=== PATIENT | male | born 2000 | race Two or more races ===

== ENCOUNTER 2021-10-01 08:17 | Outpatient (REF) | payer MEDICAID, SELFPAY ==
--- NOTE | 2021-10-01 11:12 | MHC.AU.AEV ---
Adult Audiological Evaluation Date of Visit: 10/01/21 Reason for Appointment: Audiological evaluation due to concern for decreased hearing. Yong reports a decrease in his hearing over the past month. He also notes intermittent tinnitus, that he typically only notices when in a quiet room or at night. Yong was previously seen in our clinic and diagnosed with Central Auditory Processing Disorder in 2015. Yong was also seen at our clinic in 2009, at which time he presented with conductive hearing loss in the left ear and bilateral middle-ear dysfunction. He has a history of PE tubes as well. Ear lavage was recently performed at his PCP's office. PCP's note states that a fair amount of wax was removed, but Yong became dizzy and stopped the procedure. He notes that he has since been using earwax removal drops. Does patient feel they have a hearing loss?: Yes If Yes, Which Ear?: Both Ears Has hearing been tested previously?: Yes Previous Hearing Test Results: [facility] [place], 07/02/2010 - Normal hearing, OAEs, and middle-ear function in the right ear. Mild to moderate conductive hearing loss, middle-ear dysfunction, and absent OAEs in the left ear. [facility], 09/15/2010 - Normal hearing, normal OAEs, negative middle-ear pressure in the right ear. Mild conductive hearing loss rising to normal hearing, reduced OAEs, and negative middle-ear pressure in the left ear. [facility] [place], 01/12/2011 - Normal hearing, normal OAEs, and normal middle-ear function bilaterally. [facility], 02/18/2016 - Pre-CAP eval - Normal hearing, normal middle-ear function bilaterally. Normal OAEs in left ear, reduced OAEs right ear. [facility] [place], 03/24/2016 - CAP eval - Scored below normal limits on two of the five tests, indicating an auditory processing disorder. Hearing Handicap Inventory HHIE SCORE: 4 Based on HHIE score, patient has: No perceived hearing handicap Ear History: Family History of Hearing Loss?: Yes: Paternal grandmother Ear Infections in Childhood: Both Ears History of Ear Wax Buildup: Both Ears Previous Ear Surgery: Both ears, PE tubes in 2005 Bothersome Tinnitus/Ringing/Noises in Ears: Left Ear Blocked/Full Sensation in Ear(s): Both Ears Medical History: Medical History: Headache Medical History: Per PCP report: ADHD, Tic disorder, other specific developmental learning difficulties , mixed receptive-expressive language disorder Medication List: Sertraline 100 mg twice daily Otoscopy: Right Ear: Unremarkable Left Ear: Unremarkable Tympanometry: Tympanometry performed due to: History of middle ear dysfunction Right Ear: Normal Middle Ear System (Type A) Left Ear: Normal Middle Ear System (Type A) Otoacoustic Emissions Frequency Range Used: 1.6-8 kHz Right Ear Results: Present Emissions Analysis: Present emissions suggest normal cochlear function. Rules out peripheral hearing loss greater than a mild degree. Left Ear Results: Present Emissions Analysis: Present emissions suggest normal cochlear function. Rules out peripheral hearing loss greater than a mild degree. Hearing Evaluation: Transducer(s) Used: Insert Earphones, Bone Conduction Method: Conventional Audiometry Stimuli Used: Pure Tones Right Ear: Description of Hearing: Normal hearing from 250-8000 Hz. Left Ear: Description of Hearing: Normal hearing from 250-8000 Hz. Slight low-frequency conductive component, though hearing is still within the normal range. Speech Recognition Threshold (SRT): Method Used: Monitored Live Voice Stimuli Used: Spondee Words Right Ear: 5 dBHL Left Ear: 10 dBHL Word Discrimination: Method: Recorded Lists Word Lists Used: NU-6 Right Ear: 100% at 45 dBHL Left Ear: 100% at 50 dBHL QuickSIN: 5 dB SNR loss in both the right ear and the left ear when presented monaurally at 50 dBHL, indicating a mild [id number] understanding deficit bilaterally. Interpretation of Results: Today's testing indicates normal hearing bilaterally. Advised that he may be experiencing fluctuating hearing levels due to his history of ear wax build-up (though his canals are clear today). Also, given his significant history of middle-ear dysfunction, it is possible that he could be experiencing intermittent middle-ear dysfunction at this time as well. Recommendations: No further audiological action is indicated at this time. Encouraged to return for an audiological re-evaluation if changes to his hearing are noted. Diagnosis: Primary Diagnosis: H93.293 Abnormal Auditory Perception Secondary Diagnosis: H93.25 Central Auditory Processing Disorder Services Performed: Comprehensive Audiological Evaluation (CPT 10801) Diagnostic Otoacoustic Emissions (CPT 64422, 26+TC) Tympanometry (CPT 14712) Unlisted Otorhinolaryngological Service or Procedure (CPT 64915) Signature: Provider: José Manuel Campbell, [facility]
== END 2021-10-01 08:18 | disposition home or self-care (01) ==
LOC: HO.SH 08:17
PROVIDERS: Visit Provider Emergency Medicine
DX: H93.293 Other abnormal auditory perceptions, bilateral (principal); H93.25 Central auditory processing disorder
CPT/HCPCS: 92557; 92567; 92588; 92700

== ENCOUNTER 2022-01-19 10:39 | Outpatient (REF) | payer MEDICAID, SELFPAY ==
--- NOTE | ~2022-01-19 | XR_ITS ---
EXAMINATION: XR ABDOMEN KUB CLINICAL INDICATION: Diarrhea, unspecified COMPARISON: None TECHNIQUE: AP x3 views of the abdomen. FINDINGS: There is scattered gas in the bowel of normal caliber. There is no gaseous dilatation of bowel or abnormal collections of gas. Lung bases are clear. There is no visible urinary tract calculi. Bony structures are unremarkable. XR/XR KUB IMPRESSION: Unremarkable examination.
== END 2022-01-19 10:40 | disposition home or self-care (01) ==
LOC: HO.XRAY 10:39
PROVIDERS: PCP Nurse Practitioner Family; Visit Provider Nurse Practitioner Family
DX: R19.7 Diarrhea, unspecified (principal)
CPT/HCPCS: 74018

== ENCOUNTER 2022-01-21 08:58 | Outpatient (REF) | payer MEDICAID, SELFPAY ==
[2022-01-21 09:43] LABS: Hematocrit 48.9 % (42.0-52.0); Hemoglobin 15.7 g/dl (14.0-18.0); Mean Corpuscular HGB Conc 32.1 g/dl (31.0-36.0); Mean Corpuscular Hemoglobin 27.2 pg (27.0-33.0); Mean Corpuscular Volume 84.6 fL (80.0-98.0); Mean Platelet Volume 9.4 fL (9.4-12.4); Platelet Count 232 X10*3/uL (160-400); Red Blood Count 5.78 X10*6/uL (4.60-5.80); White Blood Count 4.6 X10*3/uL (4.8-10.8)
[2022-01-21 10:22] LABS: Erythrocyte Sedimentation Rate 1 MM/HR (0-15)
[2022-01-21 10:29] LABS: Ferritin 69 ng/mL (20-250); Vitamin D 25-OH Total 19.1 ng/mL (>30)
[2022-01-21 10:33] LABS: Alanine Aminotransferase 12 U/L (0-40); Alkaline Phosphatase 106 U/L (39-117); Amylase 40 U/L (28-100); Aspartate Amino Transferase 14 U/L (5-37); Bilirubin Direct 0.5 mg/dL (0.0-0.5); Bilirubin Total 1.2 mg/dL (0.0-1.0); C Reactive Protein 0.03 mg/dL (< or = 0.50); Iron 117 mcg/dL (45-160); Lipase 12 U/L (8-78); Total Protein 7.9 g/dL (6.5-8.0)
[2022-01-21 10:53] LABS: Folate 14.4 ng/mL (> or = 4.0); Vitamin B12 551 pg/mL (200-900)
[2022-01-21 11:53] LABS: Percent Iron Saturation 35 % (15-50); Total Iron Binding Capacity 333 mcg/dL (228-428); Unsaturated Iron Binding 216 ug/dL
[2022-01-22 18:22] LABS: Transglutaminase Ab IgG <1.0 U/mL; Transglutaminase IgA <1.0 U/mL
[2022-01-23 20:01] LABS: Immunoglobulin A 135 mg/dL (47-310)
[2022-01-24 15:08] LABS: Gliadin Deamidated IgA Ab <1.0 U/mL; Gliadin Deamidated IgG Ab <1.0 U/mL
[2022-01-27 15:31] LABS: Endomysial IgA Antibody Negative (Negative)
== END 2022-01-21 08:59 | disposition home or self-care (01) ==
LOC: HO.LAB 08:58
PROVIDERS: PCP Nurse Practitioner Family; Visit Provider Nurse Practitioner Family
DX: R19.7 Diarrhea, unspecified (principal)
CPT/HCPCS: 36415; 80076; 82150; 82306; 82607; 82728; 82746; 82784; 83540; 83690; 85027; 85652; 86140; 86231; 86258; 86364

== ENCOUNTER 2022-05-20 08:50 | Outpatient (REF) | payer MEDICAID, SELFPAY ==
--- NOTE | ~2022-05-20 | US_ITS ---
EXAMINATION: US ABDOMEN COMPLETE CLINICAL INFORMATION: Chronic diarrhea. Elevated indirect bilirubin. COMPARISON: X-ray KUB 01/19/2022. TECHNIQUE: Real-time imaging of the abdominal viscera. FINDINGS: PANCREAS: Normal. ABDOMINAL AORTA: The proximal, mid, and distal segments are normal in caliber. INFERIOR VENA CAVA: Visualized portions are normal. LIVER: Normal. The liver is normal in size. The liver contour is normal. Parenchymal echogenicity is normal. No focal hepatic lesion. There is no intrahepatic biliary duct dilatation seen. GALLBLADDER: Normal. The gallbladder is physiologically distended without evidence of stones, sludge, polyps, wall thickening or pericholecystic fluid. COMMON BILE DUCT: Normal in caliber measuring 0.4 cm in diameter. RIGHT KIDNEY: Normal. No hydronephrosis. No renal calculi or focal parenchymal lesions. The kidney measures 10.3 cm in maximum dimension. LEFT KIDNEY: Normal. No hydronephrosis. No renal calculi or focal parenchymal lesions. The kidney measures 11.8 cm in maximum dimension. SPLEEN: Normal. The spleen measures 11.9 cm in maximum dimension. FREE FLUID: None. US/US abdomen complete IMPRESSION: Unremarkable examination.
== END 2022-05-20 08:51 | disposition home or self-care (01) ==
LOC: HO.HMGCX 08:50
PROVIDERS: Visit Provider Nurse Practitioner Family
DX: R19.7 Diarrhea, unspecified (principal)
CPT/HCPCS: 76700

== ENCOUNTER 2023-03-20 21:31 | Emergency (ER) | payer MEDICAID, SELFPAY ==
--- NOTE | 2023-03-20 | ECG_ITS ---
Test Reason : chest pain Blood Pressure : / mmHG Vent. Rate : 105 BPM Atrial Rate : 105 BPM P-R Int : 152 ms QRS Dur : 084 ms QT Int : 342 ms P-R-T Axes : 083 020 015 degrees QTc Int : 452 ms Sinus tachycardia Possible Left atrial enlargement Cannot rule out Anteroseptal infarct , age undetermined Abnormal ECG No previous ECGs available Referred By: Generic ED Physician Electronically Signed By:HEIDY ALEXANDER
--- NOTE | ~2023-03-20 | XR_ITS ---
EXAMINATION: XR CHEST CLINICAL INFORMATION: Chest pain, shortness of breath COMPARISON: 09/07/2016 TECHNIQUE: Frontal view of the chest was obtained. FINDINGS: The lungs are clear with no focal consolidation. No evidence of pneumothorax, pulmonary edema, or pleural effusions. The cardiomediastinal silhouette is unremarkable. No acute osseous findings. XR/XR chest 1V IMPRESSION: No acute cardiopulmonary findings.
[2023-03-20 21:35] VITALS: BP 139/83; PULSE 104; RESP 20; TEMP 36.6; O2SAT 100; BMI 30.1
[2023-03-20 21:55] LABS: MANUAL DIFF FLAG NO
[2023-03-20 21:56] LABS: Basophils Percent Auto 0.2 % (0-2); Eosinophils Absolute Auto 0.1 X10*3/uL (0.0-0.4); Eosinophils Percent Auto 0.8 % (0-4); Hemoglobin 15.7 g/dl (14.0-18.0); Imm Gran Abs Auto 0.02 X10*3/uL (0.00-0.03); Imm Gran Pct Auto 0.2 % (0.0-0.4); Lymphocytes Absolute Auto 3.1 X10*3/uL (1.2-4.9); Lymphocytes Percent Auto 36.6 % (20-40); Mean Corpuscular HGB Conc 34.9 g/dl (31.0-36.0); Mean Corpuscular Hemoglobin 27.3 pg (27.0-33.0); Mean Corpuscular Volume 78.1 fL (80.0-98.0); Mean Platelet Volume 9.2 fL (9.4-12.4); Monocytes Absolute Auto 0.6 X10*3/uL (0.1-1.2); Monocytes Percent Auto 6.7 % (2-11); Neutrophils Absolute Auto 4.7 x10*3/uL (2.0-8.3); Neutrophils Percent Auto 55.5 % (45-73); Platelet Count 312 X10*3/uL (160-400); Red Blood Count 5.76 X10*6/uL (4.60-5.80); Red Cell Distribution Width 13.1 % (11.0-16.0); White Blood Count 8.4 X10*3/uL (4.8-10.8)
[2023-03-20 22:10] LABS: Anion Gap 16 (12-20); Blood Urea Nitrogen 14 mg/dL (9-16); Calcium 10.6 mg/dL (8.4-10.2); Carbon Dioxide 19 mmol/L (22-29); Chloride 110 mmol/L (96-108); Creatinine Clr Calc Pharmacy 109.1; Estimated Glomerular Filt Rate > 60; Glucose Random 108 mg/dL (60-115); Potassium 3.7 mmol/L (3.3-5.1); Sodium 141 mmol/L (135-145)
[2023-03-20 22:26] VITALS: BP 128/59; PULSE 111; RESP 18; O2SAT 100
--- NOTE | 2023-03-20 22:28 | ED.CHESTPAIN ---
HPI - Chest Pain General Chief Complaint: Chest Pain Stated Complaint: Chest pain/sob Time Seen by Provider: 03/20/23 22:19 Source: patient Mode of arrival: ambulatory Limitations: no limitations History of Present Illness HPI narrative: Patient history of anxiety disorder on sertraline which is not taking for last 4 days comes here with multiple complaints having occasional cough with increased anxiety denies any SI or HI Related Data Previous Rx's Medication Instructions Recorded lorazepam 1 mg tablet (Ativan) 1 mg PO BID PRN anxiety #14 tabs 03/20/23 Allergies Allergy/AdvReac Type Severity Reaction Status Date / Time No Known Allergies Allergy Verified 03/20/23 22:53 [No Known Allergies*] Review of Systems Review of Systems: Yes all other systems are reviewed and are negative PMFSH Past Medical History Medical History Anxiety Asthma Social History Social History Alcohol intake: never Smoked in Last 30 Days: No Use of substances other than those prescribed or required for medical reasons: No Advance Directives: No Advance Directives Information Provided: Yes Physical Exam Vital Signs: Vital Signs: Last Vital Signs Temp 98 F 03/20/23 21:35 Pulse 111 H 03/20/23 22:26 Resp 18 03/20/23 22:26 BP 128/59 L 03/20/23 22:26 Pulse Ox 100 03/20/23 22:26 O2 Del Method Room Air, Nasal C annula with Capnog reid 03/20/23 22:26 BMI result Body Mass Index 30.1 Appearance: Alert. Oriented X3. No acute distress. Anxious Eyes: PERRLA, ENT: Pharynx normal. Oral Mucosa moist Neck: Normal inspection. Neck supple. CVS: Normal heart rate and rhythm. Pulses normal. Respiratory: No respiratory distress. Equal air entry bilateral, no wheezing/rales/rhonchi Abdomen: Soft and nontender. Bowel sounds are present, Skin: Skin warm and dry. Normal skin color. Normal skin turgor. Extremities: No lower extremity edema. No calf tenderness Neuro: Oriented X 3. Medications Administered Discontinued Medications Generic Name Dose Route Start Last Admin Trade Name Freq PRN Reason Stop Dose Admin Benzonatate 200 mg 03/20/23 22:39 03/20/23 22:52 Benzonatate 100 Mg Capsule PO 03/20/23 22:40 200 mg ONCE ONE Administration Lorazepam 1 mg 03/20/23 22:39 03/20/23 22:53 Lorazepam 1 Mg Tablet PO 03/20/23 22:40 1 mg ONCE ONE Administration Medical Decision Making Medical Decision Making [facility] Narrative: Patient's anxiety workup is negative felt better after Ativan advised to continue his sertraline and follow with PCP Lab Data [facility] Lab Attestation statement: I reviewed the patient's lab results. 03/20/23 21:50 03/20/23 21:50 Labs: Lab Results 03/20/23 03/20/23 03/20/23 Range/Units 21:50 21:50 21:50 WBC 8.4 (4.8-10.8) X10*3/uL RBC 5.76 (4.60-5.80) X10*6/uL Hgb 15.7 (14.0-18.0) g/dl Hct 45.0 (42.0-52.0) % MCV 78.1 L (80.0-98.0) fL MCH 27.3 (27.0-33.0) pg MCHC 34.9 (31.0-36.0) g/dl RDW 13.1 (11.0-16.0) % Plt Count 312 D (160-400) X10*3/uL MPV 9.2 L (9.4-12.4) fL Immature Gran % (Auto) 0.2 (0.0-0.4) % Neut % (Auto) 55.5 (45-73) % Lymph % (Auto) 36.6 (20-40) % [place] % (Auto) 6.7 (2-11) % Eos % (Auto) 0.8 (0-4) % Baso % (Auto) 0.2 (0-2) % Lymph # (Auto) 3.1 (1.2-4.9) X10*3/uL [place] # (Auto) 0.6 (0.1-1.2) X10*3/uL Eos # (Auto) 0.1 (0.0-0.4) X10*3/uL Baso # (Auto) 0.0 (0.0-0.2) X10*3/uL Abs Immat Gran (auto) 0.02 (0.00-0.03) X10*3/uL Absolute Neuts (auto) 4.7 (2.0-8.3) x10*3/uL Absolute Nucleated RBC 0.000 (0.0-0.012) X10*3/uL Nucleated RBC % (auto) 0.0 (0.0-0.2) /100WBC Sodium 141 (135-145) mmol/L Potassium 3.7 (3.3-5.1) mmol/L Chloride 110 H (96-108) mmol/L Carbon Dioxide 19 L (22-29) mmol/L Anion Gap 16 (12-20) BUN 14 (9-16) mg/dL Creatinine 1.24 (0.5-1.4) mg/dL Estim Creat Clear Calc 109.1 Estimated GFR > 60 Random Glucose 108 (60-115) mg/dL Calcium 10.6 H (8.4-10.2) mg/dL Troponin I High Sens < 2.7 (<3.5-35.0) ng/L Discharge Plan Discharge Clinical Impression: Anxiety disorder Patient Disposition: Home, Self-Care Instructions: Anxiety (ED) Additional Instructions: Continue your medications for anxiety Follow-up with your psychiatrist Ativan for severe anxiety Prescriptions: New lorazepam [Ativan] 1 mg tablet 1 mg PO BID PRN (Reason: anxiety) Qty: 14 0RF
[2023-03-20 22:30] LABS: Troponin-I High Sensitivity < 2.7 ng/L (<3.5-35.0)
--- NOTE | 2023-03-20 22:42 | PC.NURSE ---
pt c/o chest pain and congestion tremors father and brother at bedside aox4 restless is able to answer questions appropriately
[2023-03-20] MEDS: Benzonatate 100 MG CAPSULE 200 MG PO (22:52)
[2023-03-20] MEDS: LORazepam 1 MG TABLET PO (22:53)
== END 2023-03-20 23:37 | disposition home or self-care (01) ==
PROVIDERS: Emergency Provider Internal Medicine
DX: F41.9 Anxiety disorder, unspecified (principal); Z79.899 Other long term (current) drug therapy
CPT/HCPCS: 36415; 71045; 80048; 84484; 85025; 93005; 99283; 99285

== ENCOUNTER 2023-04-13 10:34 | Outpatient (REF) | payer MEDICAID, SELFPAY ==
--- NOTE | ~2023-04-13 | US_ITS ---
EXAMINATION: US THYROID CLINICAL INFORMATION: Enlarged thyroid. COMPARISON: None available. TECHNIQUE: Linear transducer grayscale and color Doppler examination with attention to the region of the thyroid. FINDINGS: SIZE: Measurements of the thyroid lobes and nodules are given in sagittal, anteroposterior and transverse dimensions respectively. Right Thyroid Lobe: 5.5 x 1.8 x 1.7 cm, volume 8.8 mL. Parenchyma: The gland echotexture is heterogeneous. Thyroid vascularity is normal. Left Thyroid Lobe: 5.5 x 1.4 x 1.7 cm, volume 6.9 mL. Parenchyma: The gland echotexture is heterogeneous. Thyroid vascularity is normal. Isthmus: 0.2 cm in maximum AP dimension. No focal thyroid nodule is seen. NODES: At right level II, 1.7 x 0.6 x 1.9 cm and 2.4 x 0.7 x 1.97 reniform lymph nodes are seen. Left level II, a 2.8 x 0.9 x 2.1 cm reniform lymph node is seen. US/US thyroid IMPRESSION: 1. There is heterogeneous thyroid echotexture, consistent with thyroiditis. 2. Thyroid dimensions are upper normal. 3. Mildly enlarged bilateral cervical lymph nodes are seen, likely reactive. These should be managed on a clinical basis. If of continued clinical concern, consider follow-up ultrasound imaging in 3-6 months to ensure stability/regression. ACR TI-RADS RECOMMENDATION REFERENCE: Ultrasound-guided fine-needle aspiration, followup ultrasound, no further follow up. * TR1 (0 point) and TR2 (2 points): No FNA or follow up. * TR3 (3 points): FNA if more than or equal to 2.5 cm in maximum dimension, followup ultrasound in 1, 3 and 5 years if 1.5 to 2.4 cm in maximum dimension. * TR4 (4-6 points): FNA if more than or equal to 1.5 cm in maximum dimension, followup ultrasound in 1, 2, 3 and 5 years if 1 to 1.4 cm in maximum dimension. * TR5 (more than or equal to 7 points): FNA if more than or equal to 1 cm in maximum dimension, followup ultrasound every year for 5 years if 0.5 to 0.9 cm in maximum dimension. * TR3, TR4 or TR5 nodules that are below the size threshold for followup receive no follow up.
== END 2023-04-13 10:35 | disposition home or self-care (01) ==
LOC: HO.HMGCX 10:34
PROVIDERS: PCP Nurse Practitioner Family; Visit Provider Nurse Practitioner Family
DX: F41.9 Anxiety disorder, unspecified (principal)
CPT/HCPCS: 76536

== ENCOUNTER 2025-07-03 10:05 | Outpatient (REF) | payer MEDICAID, SELFPAY ==
[2025-07-06 18:24] LABS: TS Negative Control Passed; TS Panel A 0; TS Panel B 0; TS Positive Control Passed; TSpotTB Negative (Negative)
== END 2025-07-03 10:06 | disposition home or self-care (01) ==
LOC: HO.HHCL 10:05
PROVIDERS: PCP General Practice; Visit Provider General Practice
DX: Z11.1 Encounter for screening for respiratory tuberculosis (principal)
CPT/HCPCS: 36415; 86481

== ENCOUNTER 2025-08-03 11:55 | Emergency (ER) | payer MEDICAID, SELFPAY ==
--- NOTE | ~2025-08-03 | XR_ITS ---
EXAMINATION: XR CHEST CLINICAL INFORMATION: dyspnea COMPARISON: None available. TECHNIQUE: 2 views of the chest were obtained. FINDINGS: No significant abnormality is noted involving the heart, lungs, mediastinum, bony thorax or soft tissues. XR/XR chest 2V IMPRESSION: No acute disease Electronically signed by: Ham Almodovar MD 08/03/2025 01:04 PM EDT RP
--- NOTE | 2025-08-03 12:46 | ED_ITS ---
HPI - General Adult General Chief complaint: Dyspnea Stated complaint: anxiety, diff breathing, thyroid issues Time Seen by Provider: 08/03/25 15:32 Source: patient, RN notes reviewed and old records reviewed Mode of arrival: ambulatory Limitations: no limitations History of Present Illness ED Provider: Destini [facility] narrative: Patient is a 24-year-old male with history of hyperthyroidism on methimazole, anxiety and panic attacks presenting to the ED with complaint of acute anxiety, feeling short of breath, and diarrhea. States the dyspnea and diarrhea are typical for him when having acute anxiety. Denies chest pain or palpitations. Denies nausea or vomiting. Denies recent cough or fevers. States he has presented here in the past for similar symptoms and felt improvement with Ativan. Denies SI/HI. MD complaint: anxiety Onset (ago): hour(s) Related Data Previous Rx's ?Medication ?Instructions ?Recorded lorazepam 1 mg tablet (Ativan) 1 mg PO BID PRN anxiety #14 tabs 03/20/23 hydroxyzine HCl 25 mg tablet 25 mg PO TID PRN anxiety #14 tabs 08/03/25 Allergies Allergy/AdvReac Type Severity Reaction Status Date / Time No Known Allergies (No Known Allergy Verified 08/03/25 12:48 Allergies*) Review of Systems 2 Review of Systems: As per HPI Yes all other systems are reviewed and are negative Constitutional: Constitutional: Reports as per HPI [facility] Past Medical History Medical History Anxiety Asthma Social History Social History Alcohol intake: never Smoked in Last 30 Days: No Use of substances other than those prescribed or required for medical reasons: No Advance Directives: Yes Advance Directives Information Provided: Yes Advance Directives on File: No Physical Exam ED Vital Signs: Vital Signs - 24 hr 08/03/25 12:47 08/03/25 14:21 08/03/25 15:57 Temperature 98.5 F Pulse Rate 100 91 88 Respiratory Rate 18 16 16 Blood Pressure 126/63 133/78 117/75 Pulse Oximetry 100 99 98 Oxygen Delivery Method Room Air Room Air Room Air BMI result Body Mass Index 36.4 Vital signs have been reviewed and appear to be correct. Blood pressure normal. Heart rate normal. Respiratory rate normal. Temperature normal. Oxygen saturation normal. Const General: cooperative, healthy appearing and no acute distress Orientation/consciousness: oriented to person, oriented to place, oriented to time and patient oriented x3 Limitations: no limitations HENMT Head: Yes normocephalic and Yes atraumatic Ears: external ears normal General nose exam: Normal external nose present Face and sinus: Yes face symmetric Mouth: oropharynx normal and moist mucous membranes Throat: Yes uvula midline Eyes Pupils: Equal, round and reactive pupils present Neck Neck: Yes normal visual inspection and Yes supple Resp Effort & Inspection: normal respiratory effort and able to speak in complete sentences Auscultation: clear to auscultation bilaterally Cardio Rate: regular rate Rhythm: regular rhythm Heart sounds: S1 normal heart sound present and S2 normal heart sound present GI Palpation (GI): Soft to palpation and nontender Auscultation: normoactive bowel sounds General: Yes no CVA tenderness Back/Spine/Pelvis Back: no CVA tenderness Skin General skin exam: elasticity normal and turgor normal Neuro General: oriented to person, oriented to place, oriented to time, patient oriented x3, moves all extremities, no focal motor deficits and CN's II-XI intact bilaterally Cranial nerves: Yes Equal, round and reactive pupils present Cognition (Neuro): normal cognition Extrem General: Yes full ROM, Yes no pedal edema and Yes no calf tenderness Psych Mental Status: mental status grossly normal Affect: normal affect Thought process: Normal thought process present Course Course Course Narrative: RME, this is a rapid medical exam performed by Audi Blackwood please refer to primary provider for complete H&P- 24 year old male presents for evaluation of shortness of breath since last night. He also endorses diarrhea starting today. Plan for labs, EKG, chest x-ray and viral swabs. Medications Administered Discontinued Medications Generic Name Dose Route Start Last Admin Trade Name Freq PRN Reason Stop Dose Admin Lorazepam 1 mg 08/03/25 15:58 08/03/25 16:14 Lorazepam 1 Mg Tablet PO 08/03/25 15:59 1 mg ONCE ONE Administration Medical Decision Making Medical Decision Making [facility] Narrative: Patient is a 24-year-old male with history of hyperthyroidism on methimazole, anxiety and panic attacks presenting to the ED with complaint of acute anxiety, feeling short of breath, and diarrhea. On exam patient is awake, A+Ox3, VS WNL, afebrile, normal neurological exam without focal deficits, physical exam findings as above. Given reported symptoms and physical exam findings, initial differential includes but is not limited to acute anxiety, electrolyte abnormality, cardiac arrhythmia, hyperthyroidism, viral illness. Unlikely PE. Patient states symptoms have somewhat improved since being in the ED, but he still feels some anxiety. Labs notable for slight leukocytosis, no significant electrolyte abnormalities, low TSH with normal T4. X-ray chest notable for no evidence of pneumonia/PTX. My interpretation is in agreement with the radiologist's interpretation. EKG shows normal sinus rhythm. Viral serology negative. Patient medicated in the ED with lorazepam. Differential Diagnosis Differential Diagnoses: The differential diagnosis associated with the presentation includes as per [facility] Admission/Observation Consideration of admission/observation: Escalation of care including admission/observation considered Patient would have been admitted to the hospital and transferred to appropriate facility had their clinical presentation warranted hospital admission. Lab Data [facility] Lab Attestation statement: I reviewed the patient's lab results. as per [facility] 08/03/25 13:36 08/03/25 13:36 Labs: Lab Results 08/03/25 Range/Units 13:36 WBC 11.2 H (4.8-10.8) X10*3/uL RBC 5.63 (4.60-5.80) X10*6/uL Hgb 15.8 (14.0-18.0) g/dl Hct 45.4 (42.0-52.0) % MCV 80.6 (80.0-98.0) fL MCH 28.1 (27.0-33.0) pg MCHC 34.8 (31.0-36.0) g/dl RDW 12.8 (11.0-16.0) % Plt Count 270 (160-400) X10*3/uL MPV 9.4 (9.4-12.4) fL Immature Gran % (Auto) 0.3 (0.0-0.4) % Neut % (Auto) 81.0 H (45-73) % Lymph % (Auto) 12.7 L (20-40) % [place] % (Auto) 5.4 (2-11) % Eos % (Auto) 0.4 (0-4) % Baso % (Auto) 0.2 (0-2) % Lymph # (Auto) 1.4 (1.2-4.9) X10*3/uL [place] # (Auto) 0.6 (0.1-1.2) X10*3/uL Eos # (Auto) 0.0 (0.0-0.4) X10*3/uL Baso # (Auto) 0.0 (0.0-0.2) X10*3/uL Abs Immat Gran (auto) 0.03 (0.00-0.03) X10*3/uL Absolute Neuts (auto) 9.1 H (2.0-8.3) x10*3/uL Absolute Nucleated RBC 0.000 (0.0-0.012) X10*3/uL Nucleated RBC % (auto) 0.0 (0.0-0.2) /100WBC Sodium 140 (135-145) mmol/L Potassium 3.8 (3.3-5.1) mmol/L Chloride 111 H (96-108) mmol/L Carbon Dioxide 21 L (22-29) mmol/L Anion Gap 12 (12-20) BUN 13 (9-16) mg/dL Creatinine 0.99 (0.5-1.4) mg/dL Estim Creat Clear Calc 134.3 Estimated GFR > 60 Random Glucose 96 (60-115) mg/dL Calcium 10.2 (8.4-10.2) mg/dL Magnesium 2.2 (1.6-2.6) mg/dL Total Bilirubin 1.1 H (0.0-1.0) mg/dL AST 25 (5-37) U/L ALT 18 (0-40) U/L Alkaline Phosphatase 102 (39-117) U/L Total Protein 8.2 H (6.5-8.0) g/dL Albumin 5.2 H (3.5-5.0) g/dL Lipase 16 (8-78) U/L TSH 0.09 L (0.32-4.0) uIU/mL Free T4 1.18 (0.71-1.85) ng/dL COVID-19 (PIERCE) Negative (Negative) COVID-19 Clin Com See Note Influenza Type A (CLARITZA) Negative (Negative) Influenza Type B (CLARITZA) Negative (Negative) Influenza A & B Note See Note Independent Interpretation I performed an independent interpretation of an: EKG (Normal sinus rhythm, rate 76 beats per minute, normal IN interval and QTC) and Plain X-Ray Interpretation: Chest x-ray is without evidence of pneumonia or pneumothorax Radiology Impression Discussion of test interpretation with radiology: I have reviewed the radiologist's reading. Radiologist Impression: XR/XR chest 2V IMPRESSION: No acute disease External Record Review External record reviewed: Inpatient record, Office record and Outpatient record Prescription Management I considered prescription management with: Other Discharge Plan Discharge Clinical Impression: Acute anxiety, Hyperthyroidism Instructions: Hyperthyroidism (ED), Anxiety (ED) Additional Instructions: You were evaluated in the emergency department today for acute anxiety, shortness of breath and diarrhea. Your EKG was normal and your labs were reassuring. Your TSH (thyroid) level was low today. We recommend that you schedule a follow up appointment with your PCP this week to discuss whether your methimazole dose should be adjusted. Your flu and covid tests were negative. Your chest x-ray was normal. You are being prescribed hydroxyzine which you can use as directed for anxiety. We recommend that you follow up with your primary care provider this week. Return to the emergency department if you develop chest pain, difficulty breathing, dizziness or lightheadedness, or any other new or concerning symptoms. Prescriptions: New hydroxyzine HCl 25 mg tablet 25 mg PO TID PRN (Reason: anxiety) Qty: 14 0RF No Action lorazepam [Ativan] 1 mg tablet 1 mg PO BID PRN (Reason: anxiety) Qty: 14 0RF Print Language: Belarusian
[2025-08-03 12:47] VITALS: BP 126/63; PULSE 100; RESP 18; TEMP 36.9; O2SAT 100; BMI 36.4
--- NOTE | 2025-08-03 12:48 | ECG_ITS ---
Test Reason : dyspnea Blood Pressure : */* mmHG Vent. Rate : 76 BPM Atrial Rate : 76 BPM P-R Int : 158 ms QRS Dur : 90 ms QT Int : 364 ms P-R-T Axes : 76 4 24 degrees QTcB Int : 409 ms Normal sinus rhythm Normal ECG When compared with ECG of 20-Mar-2023 21:39, Minimal criteria for Anteroseptal infarct are no longer Present Referred By: Jorje Blackwood Electronically Signed By: Mike Perkins
[2025-08-03 13:43] LABS: MANUAL DIFF FLAG NO
[2025-08-03 13:45] LABS: Hematocrit 45.4 % (42.0-52.0); Hemoglobin 15.8 g/dl (14.0-18.0); Imm Gran Abs Auto 0.03 X10*3/uL (0.00-0.03); Imm Gran Pct Auto 0.3 % (0.0-0.4); Lymphocytes Absolute Auto 1.4 X10*3/uL (1.2-4.9); Mean Corpuscular HGB Conc 34.8 g/dl (31.0-36.0); Mean Corpuscular Hemoglobin 28.1 pg (27.0-33.0); Mean Corpuscular Volume 80.6 fL (80.0-98.0); NRBC Abs Auto 0.000 X10*3/uL (0.0-0.012); NRBC Pct Auto 0.0 /100WBC (0.0-0.2); Platelet Count 270 X10*3/uL (160-400); Red Blood Count 5.63 X10*6/uL (4.60-5.80); White Blood Count 11.2 X10*3/uL (4.8-10.8)
[2025-08-03 13:47] LABS: IDNOW Serial# 58CA691E; Influenza B2 Negative (Negative)
[2025-08-03 14:00] LABS: COVID-19 Test Negative (Negative); IDNOW Serial# 55D5AD1C
[2025-08-03 14:11] LABS: Alanine Aminotransferase 18 U/L (0-40); Albumin Level 5.2 g/dL (3.5-5.0); Alkaline Phosphatase 102 U/L (39-117); Anion Gap 12 (12-20); Aspartate Amino Transferase 25 U/L (5-37); Blood Urea Nitrogen 13 mg/dL (9-16); Calcium 10.2 mg/dL (8.4-10.2); Carbon Dioxide 21 mmol/L (22-29); Chloride 111 mmol/L (96-108); Creatinine Clr Calc Pharmacy 134.3; Estimated Glomerular Filt Rate > 60; Lipase 16 U/L (8-78); Potassium 3.8 mmol/L (3.3-5.1); Sodium 140 mmol/L (135-145); Total Protein 8.2 g/dL (6.5-8.0)
[2025-08-03 14:21] VITALS: BP 133/78; PULSE 91; RESP 16; O2SAT 99
--- NOTE | 2025-08-03 14:28 | PC.NURSE ---
Addendum entered by Avelina Hernandez RN 08/03/25 14:28: Patient is a 24 yo male who presents with multiple complaints including anxiety secondary to his thyroid and feels he is dehydrated secondary to several BM's which he states was softly formed. Alert and oriented. Lungs clear bilat. Respirations even and non-labored. Abdomen soft, non-tender with positive bowel sounds. Positive pedal pulses with no edema. Original Note: Medical History Hyperthyroid Anxiety Asthma
[2025-08-03 15:00] LABS: Free T4 (Free Thyroxine) 1.18 ng/dL (0.71-1.85)
--- OUTSIDE RECORDS SUMMARY | 2025-08-03 15:32 | XMS_ITS | Encounter Summary ---
Author Organization [employer] Address [address] [place] [address] [address] [place] [address] Care Team Providers Care Embedded Firmware Developer Name Role Phone Quyen Fatima Primary Care Provider [phone] Cassidy Rodarte MD Primary Care Provider [phone] Encounter Details Date Type Department Care Team (Late st Contact Info) Description 04/07/2023 Orders Only [facility] MEDICINE [address] [place] [address] Quyen Fatima FNP [address] [place] [address] Low TSH level (Primary Dx) Social History Tobacco Use Types Packs/Day Years Used Date Smoking Tobacco: Never Passive Smoke Exposure: Past Smokeless Tobacco: Never Alcohol Use Standard Drinks/Week Comments Never 0 (1 standard drink = 0.6 oz pur e alcohol) Depression Answer Date Recorded Patient Health Questionnaire-9 Score 8 03/31/2023 Depression Answer Date Recorded Patient Health Questionnaire-2 Score 5 03/31/2023 Sex and Gender Information Value Date Recorded Sex Assigned at Male 09/07/2022 10:21 AM EDT Legal Sex Male 10:21 AM EDT Gender Identity Choose not to disclose 10:21 AM EDT Sexual Orientation Choose not to disclose 2021 10:21 AM EDT COVID-19 Exposure Response Date Recorded In the last 10 days, have yo u been in contact with someone who was confirmed or suspected to have Coronavirus/COVID-19? No / Unsure 04/09/2023 10:37 AM EDT documented as of this encounter Plan of Treatment Scheduled Orders Name Type Priority Associated Diagnoses Orde r Schedule T3, Free Lab Routine Low TSH level Expected: 04/07/2023 (Approximate), Expires: 04/07/2024 documented as of this encounter Procedures Procedure Name Priority Date/Time Associated Diagnosis Comments US THYROID Routine 04/13/2023 10:52 AM EDT documented in this encounter Results * US Thyroid (04/13/2023 10:52 AM EDT) Anatomical Region Laterality Modality Head, Neck Ultrasound 04/13/2023 10:5 2 AM EDT Narrative 04/15/2023 1:03 PM EDT [facility] Primary Care [address] [place] [address] [place] [address] Ultrasound Report Signed Patient: Yong Yu MR #: [id number] : 2000 Acct:[id number] Age/Sex: 22 / M ADM Date: 04/13/23 Loc: .HMGCX Attending Dr: Quyen Fatima SOCIAL SCIENCE ANALYST Ordering Physician: Quyen Fatima NP Date of Service: 04/13/23 Procedure(s): US thyroid Accession Number(s): [id number] cc: Quyen Fatima NP EXAMINATION: US THYROID CLINICAL INFORMATION: Enlarged thyroid. COMPARISON: None available. TECHNIQUE: Linear transducer grayscale and color Doppler examination with attention to the region of the thyroid. FINDINGS: SIZE: Measurements of the thyroid lobes and nodules are given in sagittal, anteroposterior and transverse dimensions respectively. Right Thyroid Lobe: 5.5 x 1.8 x 1.7 cm, volume 8.8 mL. Parenchyma: The gland echotexture is heterogeneous. Thyroid vascularity is normal. Left Thyroid Lobe: 5.5 x 1.4 x 1.7 cm, volume 6.9 mL. Parenchyma: The gland echotexture is heterogeneous. Thyroid vascularity is normal. Isthmus: 0.2 cm in maximum AP dimension. No focal thyroid nodule is seen. NODES: At right level II, 1.7 x 0.6 x 1.9 cm and 2.4 x 0.7 x 1.97 reniform lymph nodes are seen. Left level II, a 2.8 x 0.9 x 2.1 cm reniform lymph node is seen. US/US thyroid IMPRESSION: 1. There is heterogeneous thyroid echotexture, consistent with thyroiditis. 2. Thyroid dimensions are upper normal. 3. Mildly enlarged bilateral cervical lymph nodes are seen, likely reactive. These should be managed on a clinical basis. If of continued clinical concern, consider follow-up ultrasound imaging in 3-6 months to ensure stability/regression. ACR TI-RADS RECOMMENDATION REFERENCE: Ultrasound-guided fine-needle aspiration, followup ultrasound, no further follow up. * TR1 (0 point) and TR2 (2 points): No FNA or follow up. * TR3 (3 points): FNA if more than or equal to 2.5 cm in maximum dimension, followup ultrasound in 1, 3 and 5 years if 1.5 to 2.4 cm in maximum dimension. * TR4 (4-6 points): FNA if more than or equal to 1.5 cm in maximum dimension, followup ultrasound in 1, 2, 3 and 5 years if 1 to 1.4 cm in maximum dimension. * TR5 (more than or equal to 7 points): FNA if more than or equal to 1 cm in maximum dimension, followup ultrasound every year for 5 years if 0.5 to 0.9 cm in maximum dimension. * TR3, TR4 or TR5 nodules that are below the size threshold for followup receive no follow up. Dictated By: Felipe Tiardo MD Signed By: <Electronically signed by Felipe Tirado MD in OV> 04/15/23 1301 DD/ 1052 TD/TT: Director Of Radiology: [facility] Procedure Note Donotuseinterpreter, Image - 05/06/2023 [facility] Adult Primary Care [facility] [place] [address] Ultrasound Report Signed Patient: Yong Yu #: [id number] : 2000Acct:[id number] Age/Sex: 22 / MADM Date: 04/13/23 Loc: HO.HMGCX Attending Dr: Quyen Fatima NP Ordering Physician: Quyen Fatima NP Date of Service: 04/13/23 Procedure(s): US thyroid Accession Number(s): [id number] cc: Quyen Fatima SOCIAL SCIENCE ANALYST EXAMINATION: US THYROID CLINICAL INFORMATION: Enlarged thyroid. COMPARISON: None available. TECHNIQUE: Linear transducer grayscale and color Doppler examination with attention to the region of the thyroid. FINDINGS: SIZE: Measurements of the thyroid lobes and nodules are given in sagittal, anteroposterior and transverse dimensions respectively. Right Thyroid Lobe: 5.5 x 1.8 x 1.7 cm, volume 8.8 mL. Parenchyma: The gland echotexture is heterogeneous. Thyroid vascularity is normal. Left Thyroid Lobe: 5.5 x 1.4 x 1.7 cm, volume 6.9 mL. Parenchyma: The gland echotexture is heterogeneous. Thyroid vascularity is normal. Isthmus: 0.2 cm in maximum AP dimension. No focal thyroid nodule is seen. NODES: At right level II, 1.7 x 0.6 x 1.9 cm and 2.4 x 0.7 x 1.97 reniform lymph nodes are seen. Left level II, a 2.8 x 0.9 x 2.1 cm reniform lymph node is seen. US/US thyroid IMPRESSION: 1. There is heterogeneous thyroid echotexture, consistent with thyroiditis. 2. Thyroid dimensions are upper normal. 3. Mildly enlarged bilateral cervical lymph nodes are seen, likely reactive. These should be managed on a clinical basis. If of continued clinical concern, consider follow-up ultrasound imaging in 3-6 months to ensure stability/regression. ACR TI-RADS RECOMMENDATION REFERENCE: Ultrasound-guided fine-needle aspiration, followup ultrasound, no further follow up. * TR1 (0 point) and TR2 (2 points): No FNA or follow up. * TR3 (3 points): FNA if more than or equal to 2.5 cm in maximum dimension, followup ultrasound in 1, 3 and 5 years if 1.5 to 2.4 cm in maximum dimension. * TR4 (4-6 points): FNA if more than or equal to 1.5 cm in maximum dimension, followup ultrasound in 1, 2, 3 and 5 years if 1 to 1.4 cm in maximum dimension. * TR5 (more than or equal to 7 points): FNA if more than or equal to 1 cm in maximum dimension, followup ultrasound every year for 5 years if 0.5 to 0.9 cm in maximum dimension. * TR3, TR4 or TR5 nodules that are below the size threshold for followup receive no follow up. Dictated By: Felipe Tirado MD Signed By: <Electronically signed by Felipe Tirado MD in OV> 04/15/23 1301 DD/ 1052 TD/TT: Director Of Radiology: MACIEJ [employer] Provider Result Type Result Stat [facility] External Provider IMG US PROCEDURES Final Result documented in this encounter Visit Diagnoses Diagnosis Low TSH level- Primary documented in this encounter Additional Health Concerns Assessment Noted Time PHQ-9 Depression Total Score: 8 03/31/20 2:15 PM EDT documented as of this encounter Care Teams Embedded Firmware Developer Relationship Specialty Start Date End Date Quyen Fatima FNP [address] [place] [address] PCP - General Family Medicine 03/22/23 07/10/24 Cassidy Rodarte MD [address] [place] [address] PCP - General Family Medicine 07/11/24 documented as of this encounter
--- OUTSIDE RECORDS SUMMARY | 2025-08-03 15:32 | XMS_ITS | Encounter Summary ---
Author Organization [employer] Address [address] [facility] 7 [place] [address] Care Team Providers Care Turn Supervisor Name Role Phone Cassidy Rodarte MD Primary Care Provider [phone] Encounter Details Date Type Department Care Team (Late st Contact Info) Description 08/03/2025 Orders Only [facility] External Provider, [facility] Social History Tobacco Use Types Packs/Day Years Used Date Smoking Tobacco: Never Passive Smoke Exposure: Past Smokeless Tobacco: Never Alcohol Use Standard Drinks/Week Comments Never 0 (1 standard drink = 0.6 oz pur e alcohol) Depression Answer Date Recorded Patient Health Questionnaire-9 Score 0 07/03/2024 Patient Health Questionnaire-9 Score 0 07/03/2024 Last PHQ-9: Questionnaire Data Not on file 0 07/03/2024 Housing Stability Answer Date Recorded What is your housing situation today? I have jaye roshan 03/26/[address] you li ve. Do you have problems with any of the following? None of the above 03/26/2025 Food Insecurity Answer Date Recorded Within the past 12 months, y ou worried that your food would run out before you got money to buy more: Sometimes True 2024 Within the past 12 months,th e food you bought just didn't last and you didn't have enough money to get more: Never True 03/26/2025 Transportation Answer Date Recorded In the past 12 months, has l ack of transportation kept you from medical appts, meetings, work or from getting things needed for daily living? No 03/26/2025 Intimate Partner Violence Answer Date R ecorded Within the last year, have y ou been afraid of your partner or ex-partner? 2 03/26/2025 Within the last year, have y ou been humiliated or emotionally abused in other ways by your partner or ex-partner? 2 Within the last year, have y ou been kicked, hit, slapped, or otherwise physically hurt by your partner or ex-partner? 2 03/26/2025 Within the last year, have y ou been raped or forced to have any kind of sexual activity by your partner or ex-partner? 2 03/26/2025 Utilities Answer Date Recorded In the past 12 months, has t he [employer], gas, oil or water company threatened to shut off services in your home? No 03/26/2025 Depression Answer Date Recorded Patient Health Questionnaire-2 Score 0 07/03/2024 Internet Access Answer Date Recorded Internet Access Q1 Yes 03/26/2025 Internet Access Q2 Not on file 03/26/2025 Sex and Gender Information Value Date Recorded Sex Assigned at Male 09/07/2022 10:21 AM EDT Legal Sex Male 10:21 AM EDT Gender Identity Choose not to disclose 10:21 AM EDT Sexual Orientation Choose not to disclose 2021 10:21 AM EDT documented as of this encounter Plan of Treatment Not on file documented as of this encounter Procedures Procedure Name Priority Date/Time Associated Diagnosis Comments INFLUENZA A B2 ID NOW ([employer]) Routine 08/03/2025 1:36 PM EDT COVID-19 ID NOW ([employer]) Routine 08/03/2025 1:36 PM EDT TSH W/REFLEX TO FT4 Routine 08/03/2025 1 :36 PM EDT CBC WITH AUTO DIFFERENTIAL Routine 08/03/2025 1:36 PM EDT T4, FREE Routine 08/03/2025 1:36 PM EDT LIPASE Routine 08/03/2025 1:36 PM EDT COMPREHENSIVE METABOLIC PANEL Routine 08/03/2025 1:36 PM EDT XR CHEST 2 VIEWS Routine 08/03/2025 12:5 5 PM EDT documented in this encounter Results * T4, Free (08/03/2025 1:36 PM EDT) Free T4 (Free Thyroxine) 1.18 0.71 - 1.85 ng/dL [facility] 08/03/2025 1:36 PM EDT 08/03/2025 1:41 PM EDT us Generic External Data Provider LAB BLOOD ORDERAB LES Final Result Performing Organization Address [facility] Co de Phone Number [facility] [address] [place] [phone] * (ABNORMAL) TSH with Reflex to Free T4 (08/03/2025 1:36 PM EDT) TSH reflex Free T4 0.09(L) 0.32 - 4.0 uIU/mL [facility] 08/03/2025 1:36 PM EDT 08/03/2025 1:41 PM EDT us Generic External Data Provider LAB BLOOD ORDERAB LES Final Result Performing Organization Address [facility]/ZIP Co de Phone Number [facility] [address] [place] [phone] * Lipase (08/03/2025 1:36 PM EDT) Lipase 16 8 - 78 U/L [facility] 08/03/2025 1:36 PM EDT 08/03/2025 1:41 PM EDT us Generic External Data Provider LAB BLOOD ORDERAB LES Final Result Performing Organization Address City/[facility]/ZIP Co de Phone Number [facility] [address] [place] [phone] [phone] * (ABNORMAL) Comprehensive Metabolic Panel (08/03/2025 1:36 PM EDT) Sodium 140 135 - 145 mmol/L [facility] Potassium 3.8 3.3 - 5.1 mmol/L [facility] Comment:Slight Hemolysis.Int erpret result with caution. Chloride 111(H) 96 - 108 mmol/L [facility] Carbon Dioxide 21(L) 22 - 29 mmol/L [facility] Anion Gap 12 12 - 20 [facility] Urea Nitrogen (BUN) 13 9 - 16 mg/dL [facility] Creatinine, Serum 0.99 0.5 - 1.4 mg/dL [facility] Creatinine Clr Calc Pharmacy 134.3 [facility] Comment:eGFR (calculated fro m the MDRD study equation) and eCrCl(calculated from the Cockcroft-Gault equation) are based ondifferent parameters and may not yield comparable results.If eCrCl result is absurd, please check patient'sheight/weight. Estimated Glomerular Filt Rate >60 [facility] Comment:Chronic Kidney Disea se: Estimated GFR < 60 mL/min/1.23d7Nlynbp Kidney Disease: Estimated GFR < 15 mL/min/1.73m2 Glucose 96 60 - 115 mg/dL [facility] Calcium 10.2 8.4 - 10.2 mg/dL [facility] Bilirubin, Total 1.1(H) 0.0 - 1.0 mg/dL [facility] Aspartate Amino Transferase 25 5 - 37 U/L [facility] Comment:Slight Hemolysis.Int erpret result with caution. Alanine Aminotransferase 18 0 - 40 U/L [facility] Total Protein 8.2(H) 6.5 - 8.0 g/dL [facility] Albumin Level 5.2(H) 3.5 - 5.0 g/dL [facility] Alkaline Phosphatase 102 39 - 117 U/L [facility] 08/03/2025 1:36 PM EDT 08/03/2025 1:41 PM EDT us Generic External Data Provider LAB BLOOD ORDERAB LES Final Result Performing Organization Address [facility]/ZIP Co de Phone Number [facility] [address] [place] [phone] * COVID-19 ID NOW (GOMEZ) (08/03/2025 1:36 PM EDT) IDNOW SERIAL# [id number] [facility] COVID-19 TEST Negative Negative [facility] COVID-19 NOTE See Note [facility] Comment: Results are for the identification of SARS-CoV2 RNA. TheSARS-CoV2 RNA is generally detectable in respiratory samplesduring the acute phase of infection. Positive results areindicative of the presence of SARS-CoV-2 RNA; clinicalcorrelation with patient history and other diagnosticinformation is necessary to determine patient infectionstatus. Positive results do not rule out bacterial infectionor co- infection with other viruses.Testing facilities within the [facility] and [facility] are required to report all positive results tothe appropriate public health authorities.Negative results should be treated as presumptive and, ifinconsistent with clinical signs and symptoms or necessaryfor patient management, should be tested with differentauthorized or cleared molecular tests. Negative results donot preclude SARS-CoV2 RNA infection and should not be usedas the sole basis for patient management decisions. Negativeresults should be considered in the context of a patient'srecent exposures, history and the presence of clinical signsand symptoms consistent with COVID-19.This test has been authorized by the FDA under an EmergencyUse Authorization (EUA) for use by authorized laboratories.Testing performed on the Gomez ID NOW utilizing NAAT. 08/03/2025 1:36 PM EDT 08/03/2025 1:41 PM EDT us Generic External Data Provider LAB MOLECULAR DORIE GNOSTICS ORDERABLES Final Result Performing Organization Address [facility]/ZIP Co de Phone Number [facility] [address] [place] [phone] * Influenza A B2 ID NOW (Gomez) (08/03/2025 1:36 PM EDT) IDNOW SERIAL# [id number] [facility] Influenza A Negative Negative [facility] Influenza B2 Negative Negative [facility] Influenza A B2 Note See Note [facility] Comment:The Gomez ID NOW In fluenza A B2 test is used for thequalitative detection of influenza A and B from patientswith signs and symptoms of respiratory infection.Negative results do not preclude influenza virus infectionand should not be used as the sole basis for diagnosis,treatment or other patient management decisions.There is a risk of false negative results due to thepresence of variants in the viral targets of the assay, lowlevels of virus in the specimen and co- infection withRespiratory Syncytial Virus. 08/03/2025 1:36 PM EDT 08/03/2025 1:41 PM EDT Generic External Data Provider LAB MICROBIOLOGY - GENERAL ORDERABLES Final Result [facility] [address] [place] [address] [phone] * (ABNORMAL) CBC auto differential (08/03/2025 1:36 PM EDT) White Blood Count 11.2(H) 4.8 - 10.8 X10*3/uL [facility] Red Blood Count 5.63 4.60 - 5.80 X10*6/uL [facility] Hemoglobin 15.8 14.0 - 18.0 g/dl [facility] Hematocrit 45.4 42.0 - 52.0 % [facility] Mean Corpuscular Volume 80.6 80.0 - 98.0 fL [facility] Mean Corpuscular Hemoglobin 28.1 27.0 - 33.0 pg [facility] Mean Corpuscular HGB Conc 34.8 31.0 - 36.0 g/dl [facility] Red Cell Distribution Width 12.8 11.0 - 16.0 % [facility] Platelet Count 270 160 - 400 X10*3/uL [facility] Mean Platelet Volume 9.4 9.4 - 12.4 fL [facility] Neutrophils Percent Auto 81.0(H) 45 - 73 % [facility] Imm Gran Pct Auto 0.3 0.0 - 0.4 % [facility] Lymphocytes Percent Auto 12.7(L) 20 - 40 % [facility] Monocytes Percent Auto 5.4 2 - 11 % [facility] Eosinophils Percent Auto 0.4 0 - 4 % [facility] Basophils Percent Auto 0.2 0 - 2 % [facility] NRBC Pct Auto 0.0 0.0 - 0.2 /100WBC [facility] Neutrophils Absolute Auto 9.1(H) 2.0 - 8.3 x10*3/uL [facility] Imm Gran Abs Auto 0.03 0.00 - 0.03 X10*3/uL [facility] Lymphocytes Absolute Auto 1.4 1.2 - 4.9 X10*3/uL [facility] Monocytes Absolute Auto 0.6 0.1 - 1.2 X10*3/uL [facility] Eosinophils Absolute Auto 0.0 0.0 - 0.4 X10*3/uL [facility] Basophils Absolute Auto 0.0 0.0 - 0.2 X10*3/uL [facility] NRBC Abs Auto 0.000 0.0 - 0.012 X10*3/uL [facility] 08/03/2025 1:36 PM EDT 08/03/2025 1:41 PM EDT us Generic External Data Provider LAB BLOOD ORDERAB LES Final Result [facility] [address] [place] [phone] * XR Chest 2 Views (08/03/2025 12:55 PM EDT) Anatomical Region Laterality Modality Chest Radiographic Amanda ging 08/03/2025 12:5 5 PM EDT Narrative 08/03/2025 1:07 PM EDT [address] [address] XRay Report Signed Patient: Yong Yu MR #: [id number] : 2000 Acct:[id number] Age/Sex: 24 / M ADM Date: 08/03/25 Loc: HO.ED Attending Dr: Ordering Physician: Jorje Blackwood Date of Service: 08/03/25 Procedure(s): XR chest 2V Accession Number(s): [id number] cc: Cassidy Rodarte; Jorje Blackwood Reason for Exam: dyspnea EXAMINATION: XR CHEST CLINICAL INFORMATION: dyspnea COMPARISON: None available. TECHNIQUE: 2 views of the chest were obtained. FINDINGS: No significant abnormality is noted involving the heart, lungs, mediastinum, bony thorax or soft tissues. XR/XR chest 2V IMPRESSION: No acute disease Electronically signed by: Ham Almodovar MD 08/03/2025 01:04 PM EDT Dictated By: Ham Almodovar MD Signed By: <Electronically signed by Ham Almodovar MD in OV> 08/03/25 1304 DD/ 1255 TD/TT: 08/03/25 1257 In Class Special Education Teacher: Procedure Note Donotuseinterpreter, Image - 08/03/[address] [address] XRay Report Signed Patient: Yong YuMR #: [id number] : 2000Acct:[id number] Age/Sex: 24 / MADM Date: 08/03/25 Loc: .ED Attending Dr: Ordering Physician: Jorje Blackwood Date of Service: 08/03/25 Procedure(s): XR chest 2V Accession Number(s): [id number] cc: Cassidy Rodarte; Jorje Blackwood Reason for Exam: dyspnea EXAMINATION: XR CHEST CLINICAL INFORMATION: dyspnea COMPARISON: None available. TECHNIQUE: 2 views of the chest were obtained. FINDINGS: No significant abnormality is noted involving the heart, lungs, mediastinum, bony thorax or soft tissues. XR/XR chest 2V IMPRESSION: No acute disease Electronically signed by: Ham Almodovar MD 08/03/2025 01:04 PM EDT RP Dictated By: Ham Almodovar MD Signed By: <Electronically signed by Ham Almodovar MD in OV> 08/03/25 1304 DD/ 1255 TD/TT: 08/03/25 1257 In Class Special Education Teacher: [facility] External Provider IMG XR PROCEDURES Final Result documented in this encounter Visit Diagnoses Not on filedocumented in this encounter Additional Health Concerns Assessment Noted Time PHQ-9 Depression Total Score: 0 07/03/20 24 10:23 AM EDT documented as of this encounter Care Teams Turn Supervisor Relationship Specialty Start Date End Date Cassidy Rodarte MD [address] [place] [phone] PCP - General Family Medicine 07/11/24 documented as of this encounter
--- OUTSIDE RECORDS SUMMARY | 2025-08-03 15:32 | XMS_ITS | Clinical Summary ---
Author Organization [employer] Address [address] [place] [address] 7 [place] [address] Care Team Providers Care Ceo [employer] Founder Name Role Phone Cassidy Rodarte MD Primary Care Provider [phone] Allergies No known active allergies Medications Oral Electrolytes (Pedialyte) pack mix one packet in with large glass of water and take small sips prn diarrhea 2 Active methIMAzole (Tapazole) 5 MG tablet Take 5 mg by mouth in the morning. Active triamcinolone (Kenalog) 0.1 % creamIndications :Intrinsic eczema Apply topically if needed in the morning and at bedtime for rash (dry skin on arms and feet). 30 g 2 5 Active Skin Protectants, Misc. (Minerin Creme) creamIndications :Intrinsic eczema Apply 1 Application topically if needed (dry skin). 454 g 1 5 Active cholecalciferol (Vitamin D-3) 50 MCG (2000 UT) capsule Take 1 capsule (50 mcg) by mouth Once per day. 90 capsule 3 5 Active Active Problems Problem Noted Date Diagnosed Date Hyperthyroidism 09/25/2024 Intrinsic eczema 09/25/2024 Ingrown toenail without infection 09/25/2024 Lactose intolerance 10/08/2022 Generalized anxiety disorder 02/15/2013 Mixed receptive-expressive language disorder 08/2013 Tic disorder 02/15/2013 ADHD 01/25/2013 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 Resolved Problems Problem Noted Date Diagnosed Date Resolved Date Asthma 09/25/2024 03/26/2025 Low TSH level 09/25/2024 03/26/2025 Encounters Date Type Department Care Team Description 08/03/2025 Orders Only [facility] External Provider, [facility] 07/02/2025 Telephone [facility] [address] [place] [phone] Cassidy Rodarte MD Lab Orders from Last 3 Months Immunizations Immunization Administration Dates Next Due DTaP 11/26/2005, 3,03/29/2003,06/08,01/11/2002 HPV 9-Valent 08/11/2016,02/07/2016,12/09/2015 Hep A, ped/adol, 2 dose 08/11/2016,02/07/2016 Hep B, Adolescent or Pediatric 09/28/2002,2001,01/11/2002 Hib (HbO) 03/29/2003, 2,06/08/2002,01/11 IPV 11/26/2005, 2,06/08/2002,01/11 Influenza injectable quadriv alent IIV4 with preservative 08/04/2017,08/11/2016 Influenza injectable quadriv alent preservative free 10/16/2022,12/09/2015,10/24/2014 Influenza, Split (incl. karen fied surface antigen) 09/20/2013 MMR 11/26/2005,11/30/2002 Meningococcal MCV4P ACYW-135 04/22/2018,06/16/20 13 Pfizer Covid-19 Vaccine 12+ 04/22/2021, 1 Pneumococcal Conjugate PCV 7 03/29/2003, 11/30/2002,09/28/2002,01/11 Tdap 12/29/2023,06/16/2013 Varicella 06/11/2010,11/30/2002 Family History Medical History Relation Name Comments Diabetes type II Father Prostate cancer Maternal Grandfather Migraines Mother Diabetes type II Paternal Grandfather Heart disease Paternal Grandfather Stomach cancer Paternal Grandmother Relation Name Status Comments Father Alive Maternal Grandfather Maternal Grandmother Alive Mother Alive Paternal Grandfather Paternal Grandmother Social History Tobacco Use Types Packs/Day Years Used Date Smoking Tobacco: Never Passive Smoke Exposure: Past Smokeless Tobacco: Never Tobacco Cessation:Counseling Given: Not Answered Alcohol Use Standard Drinks/Week Comments Never 0 (1 standard drink = 0.6 oz pur e alcohol) Depression Answer Date Recorded Patient Health Questionnaire-9 Score 0 07/03/2024 Patient Health Questionnaire-9 Score 0 07/03/2024 Last PHQ-9: Questionnaire Data Not on file 0 07/03/2024 Housing Stability Answer Date Recorded What is your housing situation today? I have jaye islas 03/26/[address] you li [...] the past 12 months, has t he electric, gas, oil or water company threatened to [...] not to disclose 2021 10:21 AM EDT Last Filed Vital Signs Vital Sign Reading Time Taken Comments Blood Pressure 123/76 03/26/2025 1:52 PM EDT Pulse 78 03/26/2025 1:52 PM EDT Temperature 36.2 C (97.2 F) 03/26/2025 1:52 PM EDT Respiratory Rate 18 03/26/2025 1:52 PM EDT Oxygen Saturation 97% 03/26/2025 1:52 PM EDT Inhaled Oxygen Concentration - - Weight 109 kg (240 lb 6 oz) 03/26/2025 1:52 PM E DT Height 177.8 cm (5' 10 ) 03/26/2025 1:52 PM EDT Body Mass Index 34.49 03/26/2025 1:52 PM EDT Plan of Treatment Health Maintenance Due Date Last Done Comments Chlamydia and Gonorrhea Screening 2001 HIV Screening 2001 Lipid Panel 2001 Family Planning (PISQ) 2016 Meningococcal B Vaccine (1 of 2 - Standard) 2017 Depression Screening 07/03/2025 07/03/2024, 07/03/20 COVID-19 Vaccine (3 - season) 2025 04/22/2021, 04/01/2021 Influenza Vaccine (#1) 2025 2, 08/04/2017, 08/11/2016, Additional history exists Alcohol/Substance Use Screening 03/26/2026 03/26/2025 Disability Screening 03/26/2026 03/26/2025 SDOH Screening 03/26/2026 03/26/2025 Tobacco Screening 03/26/2026 03/26/2025 DTaP/Tdap/Td Vaccines (8 - Td or Tdap) 12/29/2033 12/29/2023, 06/16/2013, 11/26/2005, Additional history exists Zoster Vaccines (1 of 2) 2051 RSV Patients and Patients Aged 60 years or older (1 - 1-dose 75+ series) 2076 Hepatitis B Vaccines Completed 09/28/2002, 06/14/2002, 01/11/2002 HIB Vaccines Completed 03/29/2003, 09/09, 06/08/2002, Additional history exists Pneumococcal Vaccine: Pediatrics (0 to 5 Years) and At-Risk Patients (6 to 49) Years Aged Out 03/29/2003, 11/30/2002, 09/28/2002, Additional history exists No longer eligible based on patient's age to complete this topic IPV Vaccines Completed 11/26/2005, 09/09, 06/08/2002, Additional history exists HPV Vaccines Completed 08/11/2016, 11/2015, 12/09/2015 Hepatitis A Vaccines Completed 08/11/2016, 02/07/20 16 Meningococcal Vaccine Completed 04/22/2018, 013 Hepatitis C Screening Completed 01/28/2022 RSV under 20 months Aged Out No longe r eligible based on patient's age to complete this topic Rotavirus Vaccines Aged Out No longer eligible based on patient's age to complete this topic Procedures Procedure Name Priority Date/Time Associated Diagnosis Comments T4, FREE Routine 08/03/2025 1:36 PM EDT TSH W/REFLEX TO FT4 Routine 08/03/2025 1 :36 PM EDT LIPASE Routine 08/03/2025 1:36 PM EDT COMPREHENSIVE METABOLIC PANEL Routine 08/03/2025 1:36 PM EDT COVID-19 ID NOW (GOMEZ) Routine 08/03/2025 1:36 PM EDT CBC WITH AUTO DIFFERENTIAL Routine 08/03/2025 1:36 PM EDT INFLUENZA A B2 ID NOW (GOMEZ) Routine 08/03/2025 1:36 PM EDT XR CHEST 2 VIEWS Routine 08/03/2025 12:5 5 PM EDT T-SPOT(R).TB Routine 07/03/2025 10:10 AM EDT Routine health maintenance ZZZ HISTORICAL HEPATITIS C AB W/REFL TO HCV RNA, QN, PCR Routine 01/28/2022 8:08 AM EDT from Last 3 Months or Most Recently Relevant to Health Maintenance Results * Influenza A B2 ID NOW (Gomez) (08/03/2025 1:36 PM EDT) IDNOW SERIAL# [id number] [facility] Influenza A Negative Negative [facility] Influenza B2 Negative Negative [facility] Influenza A B2 Note See Note [facility] Comment:The Gomez ID NOW In [...] EDT us Generic External Data Provider LAB MICROBIOLOGY - GENERAL ORDERABLES Final Result [facility] [address] [place] [phone] * COVID-19 ID NOW (GOMEZ) (08/03/2025 1:36 PM EDT) IDNOW SERIAL# [id number] [facility] COVID-19 TEST Negative Negative [facility] COVID-19 NOTE See Note [facility] Comment: Results are for the identification of SARS-CoV2 RNA. TheSARS-CoV2 RNA is generally detectable in respiratory samplesduring the acute phase of infection. Positive results areindicative of the presence of SARS-CoV-2 RNA; clinicalcorrelation with patient history and other diagnosticinformation is necessary to determine patient infectionstatus. Positive results do not rule out bacterial infectionor co- infection with other viruses.Testing facilities within the [place] and itsterritories are required to report all positive results [...] use by authorized laboratories.Testing performed on the mSilica ID NOW utilizing NAAT. 08/03/2025 1:36 PM EDT 08/03/2025 1:41 PM EDT Generic External Data Provider LAB MOLECULAR DORIE GNOSTICS ORDERABLES Final Result Performing Organization Address City/[facility]/ZIP Co de Phone Number [facility] [address] [place] [address] [phone] * (ABNORMAL) TSH with Reflex to Free T4 (08/03/2025 1:36 PM EDT) Pathologist [facility] TSH reflex Free T4 0.09(L) 0.32 - 4.0 uIU/mL [facility] 08/03/2025 1:36 PM EDT 08/03/2025 1:41 PM EDT Generic External Data Provider LAB BLOOD ORDERAB LES Final Result Performing Organization Address [facility] Co de Phone Number [facility] [address] [place] [address] [phone] * (ABNORMAL) CBC auto differential (08/03/2025 1:36 PM EDT) Pathologist [facility] White Blood Count 11.2(H) 4.8 - 10.8 X10*3/uL [facility] Red Blood Count 5.63 4.60 - 5.80 X10*6/uL [facility] Hemoglobin 15.8 14.0 - 18.0 g/dl [facility] Hematocrit 45.4 42.0 - 52.0 % [facility] Mean Corpuscular Volume 80.6 80.0 - 98.0 fL [facility] Mean Corpuscular Hemoglobin 28.1 27.0 - 33.0 pg [facility] Mean Corpuscular HGB Conc 34.8 31.0 - 36.0 g/dl [facility] Red Cell Distribution Width 12.8 11.0 - 16.0 % [facility] Platelet Count 270 160 - 400 X10*3/uL [facility] Mean Platelet Volume 9.4 9.4 - 12.4 fL [facility] Neutrophils Percent Auto 81.0(H) 45 - 73 % [facility] Imm Gran Pct Auto 0.3 0.0 - 0.4 % [facility] Lymphocytes Percent Auto 12.7(L) 20 - 40 % [facility] Monocytes Percent Auto 5.4 2 - 11 % [facility] Eosinophils Percent Auto 0.4 0 - 4 % [facility] Basophils Percent Auto 0.2 0 - 2 % [facility] NRBC Pct Auto 0.0 0.0 - 0.2 /100WBC [facility] Neutrophils Absolute Auto 9.1(H) 2.0 - 8.3 x10*3/uL [facility] Imm Gran Abs Auto 0.03 0.00 - 0.03 X10*3/uL [facility] Lymphocytes Absolute Auto 1.4 1.2 - 4.9 X10*3/uL [facility] Monocytes Absolute Auto 0.6 0.1 - 1.2 X10*3/uL [facility] Eosinophils Absolute Auto 0.0 0.0 - 0.4 X10*3/uL [facility] Basophils Absolute Auto 0.0 0.0 - 0.2 X10*3/uL [facility] NRBC Abs Auto 0.000 0.0 - 0.012 X10*3/uL [facility] 08/03/2025 1:36 PM EDT 08/03/2025 1:41 PM EDT Generic External Data Provider LAB BLOOD ORDERAB LES Final Result Performing Organization Address [facility] de Phone Number [facility] [address] [place] [phone] * T4, Free (08/03/2025 1:36 PM EDT) Pathologist [facility] Free T4 (Free Thyroxine) 1.18 0.71 - 1.85 ng/dL [facility] 08/03/2025 1:36 PM EDT 08/03/2025 1:41 PM EDT Generic External Data Provider LAB BLOOD ORDERAB LES Final Result Performing Organization Address [facility] Phone Number [facility] [address] [place] [phone] * Lipase (08/03/2025 1:36 PM EDT) Pathologist [facility] Lipase 16 8 - 78 U/L [facility] 08/03/2025 1:36 PM EDT 08/03/2025 1:41 PM EDT Generic External Data Provider LAB BLOOD ORDERAB LES Final Result Performing Organization Address [facility] Phone Number [facility] [address] [place] [phone] * (ABNORMAL) Comprehensive Metabolic Panel (08/03/2025 1:36 PM EDT) Pathologist [facility] Sodium 140 135 - 145 mmol/L [facility] Potassium 3.8 3.3 - 5.1 mmol/L [facility] Comment:Slight Hemolysis.Int erpret result with caution. Chloride 111(H) 96 - 108 mmol/L [facility] Carbon Dioxide 21(L) 22 - 29 mmol/L [facility] Anion Gap 12 12 - 20 [facility] Urea Nitrogen (BUN) 13 9 - 16 mg/dL [facility] Creatinine, Serum 0.99 0.5 - 1.4 mg/dL [facility] Creatinine Clr Calc Pharmacy 134.3 [facility] Comment:eGFR (calculated fro m the MDRD study equation) and eCrCl(calculated from the Cockcroft-Gault equation) are based ondifferent parameters and may not yield comparable results.If eCrCl result is absurd, please check patient'sheight/weight. Estimated Glomerular Filt Rate >60 [facility] Comment:Chronic Kidney Disea se: Estimated GFR < 60 mL/min/1.77i6Ubgvor Kidney Disease: Estimated GFR < 15 mL/min/1.73m2 Glucose 96 60 - 115 mg/dL [facility] Calcium 10.2 8.4 - 10.2 mg/dL [facility] Bilirubin, Total 1.1(H) 0.0 - 1.0 mg/dL [facility] Aspartate Amino Transferase 25 5 - 37 U/L [facility] Comment:Slight Hemolysis.Int erpret result with caution. Alanine Aminotransferase 18 0 - 40 U/L [facility] Total Protein 8.2(H) 6.5 - 8.0 g/dL [facility] Albumin Level 5.2(H) 3.5 - 5.0 g/dL [facility] Alkaline Phosphatase 102 39 - 117 U/L [facility] 08/03/2025 1:36 PM EDT 08/03/2025 1:41 PM EDT us Generic External Data Provider LAB BLOOD ORDERAB LES Final Result [facility] [address] [place] [phone] [phone] * XR Chest 2 Views (08/03/2025 12:55 PM EDT) Anatomical Region Laterality Modality Chest Radiographic Amanda ging 08/03/2025 12:5 5 PM EDT Narrative 08/03/2025 1:07 PM EDT [address] [address] XRay Report Signed Patient: Yong Yu MR #: [id number] : 2000 Acct:[id number] Age/Sex: 24 / M ADM Date: 08/03/25 Loc: HO.ED Attending Dr: Ordering Physician: Jorje Blackwood Date of Service: 08/03/25 Procedure(s): XR chest 2V Accession Number(s): [id number] cc: Cassidy Rodarte; Jorje Blackwood Reason for [...] 08/03/25 1304 DD/ 1255 TD/TT: 08/03/25 1257 [employer] Operator: Procedure Note Donotuseinterpreter, Image - 08/03/[address] [address] XRay Report Signed Patient: Yong YuMR #: [id number] : 2000Acct:[id number] Age/Sex: 24 / MADM Date: 08/03/25 Loc: .ED Attending Dr: Ordering Physician: Jorje Blackwood Date of Service: 08/03/25 Procedure(s): XR chest 2V Accession Number(s): [id number] cc: Cassidy Rodarte; Jorje Blackwood Reason for [...] 08/03/25 1304 DD/ 1255 TD/TT: 08/03/25 1257 [employer] Operator: [facility] External Provider IMG XR PROCEDURES Final Result * T-SPOT??.TB (07/03/2025 10:10 AM EDT) T Spot TB Negative Negative [facility] Comment:A negative test resu lt does not exclude the possibilityof exposure to or infection with Mycobacteriumtuberculosis (M. tuberculosis). Patients with recentexposure to TB infected individuals exhibiting anegative T-SPOT.TB result should be considered forretesting within 6 weeks or if other relevant clinicalsymptoms indicate. Results from T-SPOT.TB testing mustbe used in conjunction with each individual'sepidemiological history, current medical status,and results of other diagnostic evaluations.The T-SPOT.TB test is qualitative and results arereported as positive, borderline, or negative, giventhat the test controls perform as expected. In linewith the Centers for Disease Control and Prevention's2010 recommendation to report quantitative measurementsalongside the qualitative result, the laboratoryprovides spot counts for informational purposes only.The T-SPOT.TB test should not be interpreted as aquantitative test. TS PANEL A 0 [facility] TS PANEL B 0 [facility] Negative Control Passed [facility] Positive Control Passed [facility] Comment:For additional infor roya, please refer tohttp://education.E-Blink/faq/UNJ641(This link is being provided for informational/educational purposes only.)THIS TEST WAS PERFORMED AT:[id number] [place] [phone] LOYA MD,PHD 07/03/2025 10:1 0 AM EDT 07/03/2025 11:06 AM EDT us Cassidy Rodarte MD LAB BLOOD ORDERABLES Final Res ult [facility] [address] [place] [phone] * HEPATITIS C AB W/REFL TO HCV RNA, QN, PCR (01/28/2022 8:08 AM EDT) HEPATITIS C ANTIBODY NON-REACT ELVIS NON-REACT [facility] INDEX 0.02 <1.00 [facility] Comment: HCV antibody was non-reactive. There is no laboratory evidence of HCV infection. In most cases, no further action is required. However, if recent HCV exposure is suspected, a test for HCV RNA (test code 06440) is suggested. For additional information please refer to http://education.E-Blink/faq/MKY43t7 (This link is being provided for informational/ educational purposes only.) 01/28/2022 8:08 AM EDT us [facility] HISTORICAL/NON ORDERABLE LABS Final Result Performing Organization Address City/[facility]/ZIP Co de Phone Number [facility] [address] [place] [address], from Last 3 Months or Most Recently Relevant to Health Maintenance Insurance [facility] * Guarantor: Yong Yu Account Type Relation to Patient Date of Phone Billing Address Personal/Family Self [place], [place] * Guarantor: Yong Yu Account Type Relation to Patient Date of Phone Billing Address Personal/Family Self [place], [place] * Guarantor: Yong Yu Account Type Relation to Patient Date of Phone Billing Address Personal/Family Self [place], [place] Care Teams [employer] Founder Relationship Specialty Start Date End Date Cassidy Rodarte MD [address] [place] [phone] PCP - General Family Medicine 07/11/24
[2025-08-03 15:57] VITALS: BP 117/75; PULSE 88; RESP 16; O2SAT 98
[2025-08-03 15:59] LABS: Magnesium 2.2 mg/dL (1.6-2.6)
[2025-08-03 17:23] VITALS: BP 117/75; PULSE 88; RESP 16; TEMP 36.7; O2SAT 98
== END 2025-08-03 17:25 | disposition home or self-care (01) ==
PROVIDERS: Physician Assistant; Registered Nurse Emergency; Emergency Provider Emergency Medicine Emergency Medical Services; PCP General Practice
DX: F41.9 Anxiety disorder, unspecified (principal); R06.02 Shortness of breath; F41.0 Panic disorder [episodic paroxysmal anxiety]; E05.90 Thyrotoxicosis, unspecified without thyrotoxic crisis or storm; Z11.52 Encounter for screening for COVID-19
CPT/HCPCS: 71046; 80053; 83690; 83735; 84439; 84443; 85025; 87502; 87635; 93005; 99283; 99284

== ENCOUNTER → 2025-08-03 12:48 | Outpatient (BNV) | payer MEDICAID, SELFPAY | PROVIDERS: Emergency Provider Emergency Medicine Emergency Medical Services; PCP General Practice; Visit Provider Internal Medicine Cardiovascular Disease | DX: R06.00 Dyspnea, unspecified (principal) | CPT/HCPCS: 93010 ==

== ENCOUNTER → 2025-08-03 12:48 | Outpatient (BNV) | payer MEDICAID, SELFPAY | PROVIDERS: PCP General Practice; Visit Provider Radiology Diagnostic Radiology | DX: R06.00 Dyspnea, unspecified (principal) | CPT/HCPCS: 71046 ==

== ENCOUNTER 2025-08-07 09:20 | Outpatient (REF) | payer MEDICAID, SELFPAY ==
--- OUTSIDE RECORDS SUMMARY | 2025-08-06 14:40 | XMS_ITS | Encounter Summary ---
Author Organization [employer] Address [address] [facility] [address] [place] [address] Care Team Providers Care Client Success Specialist Name Role Phone Cassidy Rodarte MD Primary Care Provider [phone] Nikos Hercules RN Unavailable [phone] Khloe Snyder Unavailable Encounter Details Date Type Department Care Team (Late st Contact Info) Description 08/06/2025 2:40 PM EDT Office Visit [facility] [address] [place] [address] Polydipsia (Primary Dx); Hyperthyroidism Social History Tobacco Use Types Packs/Day Years [...] AM EDT documented as of this encounter Last Filed Vital Signs Vital Sign Reading Time Taken Comments Blood Pressure 125/82 08/06/2025 2:13 PM EDT Pulse 87 08/06/2025 2:13 PM EDT Temperature 36.7 C (98 F) 08/06/2025 2:13 PM EDT Respiratory Rate 16 08/06/2025 2:13 PM EDT Oxygen Saturation 98% 08/06/2025 2:13 PM EDT Inhaled Oxygen Concentration - - Weight 104 kg (229 lb) 08/06/2025 2:13 PM EDT Height - - Body Mass Index 32.86 03/26/2025 1:52 PM EDT documented in this encounter Miscellaneous Notes * Patient Education Note - Berenice Erickson MD - 08/06/2025 6:36 PM EDT Images from the original note were not included. Patient Education Table of Contents Dehydration, Adult To view videos and all your education online visit, [email or web address] or scan this QR code with your smartphone. Access to this content will in one year. Dehydration, Adult Dehydration is a condition in which there is not enough water or other fluids in the body. This happens when a person loses more fluids than they take in. Important organs cannot work right without the right amount of fluids. Any loss of fluids from the body can cause dehydration. Dehydration can be mild, worse, or very bad. It should be treated right away to keep it from getting very bad. What are the causes? Conditions that cause loss of water in the body. They include: ? Watery poop (diarrhea). ? Vomiting. ? Sweating a lot. ? Fever. ? Infection. ? Peeing (urinating) a lot. Not drinking enough fluids. Certain medicines, such as medicines that take extra fluid out of the body (diuretics). Lack of safe drinking water. Not being able to get enough water and food. What increases the risk? Having a long-term (chronic) illness that has not been treated the right way, such as: ? Diabetes. ? Heart disease. ? Kidney disease. Being 65 years of age or older. Having a disability. Living in a place that is high above the ground or sea (high in altitude). The thinner, cylinder machine operator pulp drier air causes more fluid loss. Doing exercises that put stress on your body for a long time. Being active when in hot places. What are the signs or symptoms? Symptoms of dehydration depend on how bad it is. Mild or worse dehydration Thirst. Dry lips or dry mouth. Feeling dizzy or light-headed. Muscle cramps. Passing little pee or dark pee. Pee may be the color of tea. Headache. Very bad dehydration Changes in skin. Skin may: ? Be cold to the touch (clammy). ? Be blotchy or pale. ? Not go back to normal right after you pinch it and let it go. Little or no tears, pee, or sweat. Fast breathing. Low blood pressure. Weak pulse. Pulse that is more than 100 beats a minute when you are sitting still. Other changes, such as: ? Feeling very thirsty. ? Eyes that look hollow (sunken). ? Cold hands and feet. ? Being confused. ? Being very tired (lethargic) or having trouble waking from sleep. ? Losing weight. ? Loss of consciousness. How is this treated? Treatment for this condition depends on how bad your dehydration is. Treatment should start right away. Do not wait until your condition gets very bad. Very bad dehydration is an emergency. You will need to go to a hospital. Mild or worse dehydration can be treated at home. You may be asked to: ? Drink more fluids. ? Drink an oral rehydration solution (ORS). This drink gives you the right amount of fluids, salts,and minerals (electrolytes). Very bad dehydration can be treated: ? With fluids through an IV tube. ? By correcting low levels of electrolytes in the body. ? By treating the problem that caused your dehydration. Follow these instructions at home: Oral rehydration solution If told by your doctor, drink an ORS: Make an ORS. Use instructions on the package. Start by drinking small amounts, about ? cup (120 mL) every 5?10 minutes. Slowly drink more until you have had the amount that your doctor said to have. Eating and drinking Drink enough clear fluid to keep your pee pale yellow. If you were told to drink an ORS, finish theORS first. Then, start slowly drinking other clear fluids. Drink fluids such as: ? Water. Do not drink only water. Doing that can make the salt (sodium) level in your body get too low. ? Water from ice chips you suck on. ? Fruit juice that you have added water to (diluted). ? Low-calorie sports drinks. Eat foods that have the right amounts of salts and minerals, such as bananas, oranges, potatoes, tomatoes, or spinach. Do not drink alcohol. Avoid drinks that have caffeine or sugar. These include:: ? High-calorie sports drinks. ? Fruit juice that you did not add water to. ? Soda. ? Coffee or energy drinks. Avoid foods that are greasy or have a lot of fat or sugar. General instructions Take iolm-fvt-ugpbyrz and prescription medicines only as told by your doctor. Do not take sodium tablets. Doing that can make the salt level in your body get too high. Return to your normal activities as told by your doctor. Ask your doctor what activities are safe for you. Keep all follow-up visits. Your doctor may check and change your treatment. Contact a doctor if: You have pain in your belly (abdomen) and the pain: ? Gets worse. ? Stays in one place. You have a rash. You have a stiff neck. You get angry or annoyed more easily than normal. You are more tired or have a harder time waking than normal. You feel weak or dizzy. You feel very thirsty. Get help right away if: You have any symptoms of very bad dehydration. You vomit every time you eat or drink. Your vomiting gets worse, does not go away, or you vomit blood or green stuff. You are getting treatment, but symptoms are getting worse. You have a fever. You have a very bad headache. You have: ? Diarrhea that gets worse or does not go away. ? Blood in your poop (stool). This may cause poop to look black and tarry. ? No pee in 6?8 hours. ? Only a small amount of pee in 6?8 hours, and the pee is very dark. You have trouble breathing. These symptoms may be an emergency. Get help right away. Call 911. Do not wait to see if the symptoms will go away. Do not drive yourself to the hospital. This information is not intended to replace advice given to you by your health care provider. Make sure you discuss any questions you have with your health care provider. Document Released: 2010-08-21 Document Updated: 2023-05-24 Document Reviewed: 2023-05-24 [employer] Patient Education ? 2024 [employer] documented in this encounter Plan of Treatment Scheduled Orders Name Type Priority Associated Diagnoses Orde r Schedule T3, Free Lab Routine Hyperthyroidism Expected: 08/06/2025 (Approximate), Expires: 08/06/2026 T3, Total Lab Routine Hyperthyroidism Expected: 08/06/2025 (Approximate), Expires: 08/06/2026 T4, Free Lab Routine Hyperthyroidism Expected: 08/06/2025 (Approximate), Expires: 08/06/2026 TSH Lab Routine Polydipsia Hyperthyroidism Expected: 08/06/2025 (Approximate), Expires: 08/06/2026 T4 (Thyroxine), Total Lab Routine Hyperthyroidism Expected: 08/06/2025 (Approximate), Expires: 08/06/2026 Hemoglobin A1c Lab Routine Polydipsia Hyperthyroidism Expected: 08/06/2025 (Approximate), Expires: 08/06/2026 Sed Rate by Modified [place] Lab Routine Hyperthyroidism Expected: 08/06/2025 (Approximate), Expires: 08/06/2026 documented as of this encounter Visit Diagnoses Diagnosis Polydipsia- Primary Hyperthyroidism Thyrotoxicosis without mention of goiter or other cause, without mention of thyrotoxic crisis or storm documented in this encounter Additional Health Concerns Assessment Noted Time PHQ-9 Depression Total Score: 0 07/03/20 24 10:23 AM EDT documented as of this encounter Care Teams Client Success Specialist Relationship Specialty Start Date End Date Cassidy Rodarte MD [address] [place] [address] PCP - General Family Medicine 07/11/24 Nikos Hercules, MAO [address] [place] [id number] Registered Nurse Family Medicine 08/06/25 Khloe Snyder 08/06/25 documented as of this encounter
--- OUTSIDE RECORDS SUMMARY | 2025-08-07 09:45 | XMS_ITS | Encounter Summary ---
Author Organization [employer] Address [address] [facility] [address] [place] [address] Care Team Providers Care Quality Assurance Intern Name Role Phone Cassidy Rodarte MD Primary Care Provider [phone] Nikos Hercules RN Unavailable [phone] Khloe Snyder Unavailable Reason for Visit * Reason Comments Acupuncture Encounter Details Date Type Department Care Team ([facility] st Contact Info) Description 08/07/2025 9:45 AM EDT Office Visit [facility] [address] [place] [address] Arrived Social History Tobacco Use Types Packs/Day Years [...] on file documented as of this encounter Visit Diagnoses Not on filedocumented in this encounter Additional Health Concerns Assessment Noted Time PHQ-9 Depression Total Score: 0 07/03/20 24 10:23 AM EDT documented as of this encounter Care Teams Quality Assurance Intern Relationship Specialty Start Date End Date Cassidy Rodarte MD [address] [place] [address] PCP - General Family Medicine 07/11/24 Nikos Hercules RN [address] [place] [id number] Registered Nurse Family Medicine 08/06/25 Khloe Snyder 08/06/25 documented as of this encounter
--- OUTSIDE RECORDS SUMMARY | 2025-08-07 10:09 | XMS_ITS | Encounter Summary ---
Author Organization [employer] Address [address] [facility] [address] [place] [address] Care Team Providers Care Coin Wrapping Machine Operator Name Role Phone Cassidy Rodarte MD Primary Care Provider [phone] Nikos Hercules RN Unavailable [phone] Khloe Snyder Unavailable Encounter Details Date Type Department Care Team (Latest Contact Info) Description 08/06/2025 Travel Social History Tobacco Use Types Packs/Day Years [...] documented as of this encounter Care Teams Coin Wrapping Machine Operator Relationship Specialty Start Date End Date Cassidy Rodarte MD [address] [place] [address] PCP - General Family Medicine 07/11/24 Nikos Hercules, MAO [address] [place] [id number] Registered Nurse Family Medicine 08/06/25 Khloe Snyder 08/06/25 documented as of this encounter
--- OUTSIDE RECORDS SUMMARY | 2025-08-07 10:09 | XMS_ITS | Encounter Summary ---
Author Organization [employer] Address [address] [place] [address] [address] [place] [address] Care Team Providers Care Fuel Yard Operator Name Role Phone Quyen Fatima Primary Care Provider [phone] Cassidy Rodarte MD Primary Care Provider Nikos Hercules RN Unavailable [phone] Khloe Snyder Unavailable Encounter Details Date Type Department Care Team (Late st Contact Info) Description 04/07/2023 Orders Only [facility] [address] [place] [address] Quyen Fatima FNP [address] [place] [address] Low TSH level (Primary Dx) Social History [...] EDT Gender Identity Choose not to disclose 2 10:21 AM EDT Sexual Orientation Choose not [...] AM EDT Narrative 04/15/2023 1:03 PM EDT [facility] [address] [place] [address] [place] [address] Ultrasound Report Signed Patient: Yong Yu MR #: [id number] : 2000 Acct:[id number] Age/Sex: 22 / M ADM Date: 04/13/23 Loc: HO.HMGCX Attending Dr: Quyen Fatima NP Ordering Physician: Quyen Fatima NP Date of Service: 04/13/23 Procedure(s): US thyroid Accession Number(s): [id number] cc: Quyen Fatima NP EXAMINATION: US THYROID [...] in OV> 04/15/23 1301 DD/ 1052 TD/TT: Family Educator: MACIEJ Aguilar Note Donotuseinterpreter, Image - 05/06/2023 [facility] [place] [address] Ultrasound Report Signed Patient: Yong Yu #: [id number] : 2000Acct:[id number] Age/Sex: 22 / MADM Date: 04/13/23 Loc: .HMGCX Attending Dr: Quyen Fatima THERAPEUTIC RECREATION DIRECTOR Ordering Physician: Quyen Fatima NP Date of Service: 04/13/23 Procedure(s): US thyroid Accession Number(s): [id number] cc: Quyen Fatima NP EXAMINATION: US THYROID [...] in OV> 04/15/23 1301 DD/ 1052 TD/TT: Family Educator: MACIEJ Aut[employer]dras Provider Result Type Result [facility] External Provider IMG US PROCEDURES Final Result documented in this encounter Visit Diagnoses Diagnosis Low TSH level- Primary documented in this encounter Additional Health Concerns Assessment Noted Time PHQ-9 Depression Total Score: 8 03/31/20 23 2:15 PM EDT documented as of this encounter Care Teams Fuel Yard Operator Relationship Specialty Start Date End Date Quyen Fatima FNP [address] [place] [address] PCP - General Family Medicine 03/22/23 07/10/24 Cassidy Rodarte MD [address] [place] [address] PCP - General Family Medicine 07/11/24 Nikos Hercules, MAO [address] [place] [address] Registered Nurse Family Medicine 08/06/25 Khloe Snyder 08/06/25 documented as of this encounter
--- OUTSIDE RECORDS SUMMARY | 2025-08-07 10:09 | XMS_ITS | Clinical Summary ---
Author Organization [employer] Address [address] [place] [address] [address] [place] [address] Care Team Providers Care Putty Worker Name Role Phone Cassidy Rodarte MD Primary Care Provider [phone] Nikos Hercules RN Unavailable [phone] Khloe Snyder Unavailable Allergies No known active allergies Medications Oral [...] per day. 90 capsule 3 5 Active acetaminophen (Tylenol Extra Strength) 500 MG tablet Take 1 tablet (500 mg) by mouth every 6 (six) hours if needed for mild pain. 120 tablet 5 09/05/20 25 Active Active Problems Problem Noted Date Diagnosed Date Polydipsia 08/06/2025 Hyperthyroidism 09/25/2024 Intrinsic eczema 09/25/2024 Ingrown toenail without infection 09/25/2024 Lactose intolerance 10/08/2022 Generalized anxiety disorder 02/15/2013 Mixed receptive-expressive language disorder 08/2013 Tic disorder 02/15/2013 ADHD 01/25/2013 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 Resolved Problems Problem Noted Date Diagnosed Date Resolved Date Asthma 09/25/2024 03/26/2025 Low TSH level 09/25/2024 03/26/2025 Encounters Date Type Department Care Team Description 08/07/2025 9:45 AM EDT Office Visit [address] [address] Arrived 08/07/2025 Travel 08/06/2025 2:40 PM EDT Office Visit [facility] [address] [place] [phone] Polydipsia (Primary Dx); Hyperthyroidism 08/06/2025 Travel 08/06/[address] [address] Cassidy Rodarte MD ER Follow-up 08/06/2025 Patient Outreach [address] [address] Cassidy Rodarte MD 08/06/2025 Patient Outreach [address] [address] Cassidy Rodarte MD Care Coordination ([facility]/W Khloe Snyder, Chart review ) 08/06/2025 Patient Outreach [facility] [address] [place], [place] [phone] Cassidy Rodarte MD Care Coordination ([facility]- chart review) 08/06/2025 Patient Outreach [address] [address] Cassidy Rodarte MD 08/03/2025 Orders Only [facility] External Provider, [facility] 07/02/[address] [address] Cassidy Rodarte MD Lab Orders from Last 3 Months Immunizations Immunization Administration Dates Next Due DTaP 11/26/2005, 3,03/29/2003,06/08,01/11/2002 HPV 9-Valent 08/11/2016,02/07/2016,12/09/2015 Hep A, ped/adol, 2 dose 08/11/2016,02/07/2016 Hep B, Adolescent or Pediatric 09/28/2002,2001,01/11/2002 Hib (HbOC) 03/29/2003, 2,06/08/2002,01/11 IPV 11/26/2005, 2,06/08/2002,01/11 Influenza injectable [...] the past 12 months, has t he [employer], gas, oil or water company threatened to [...] (229 lb) 08/06/2025 2:13 PM EDT Height 177.8 cm (5' 10 ) 03/26/2025 1:52 PM EDT Body Mass Index 32.86 03/26/2025 1:52 PM EDT Plan of Treatment Health Maintenance Due Date Last Done Comments Chlamydia and Gonorrhea Screening 2001 HIV Screening 2001 Lipid Panel 2001 Family Planning (PISQ) 2016 Meningococcal B Vaccine (1 of 2 - Standard) 2017 Depression Screening 07/03/2025 07/03/2024, 07/03/20 24 COVID-19 Vaccine (3 - season) 2025 04/22/2021, 04/01/2021 Influenza Vaccine (#1) 2025 , 08/04/2017, 08/11/2016, Additional history exists Alcohol/Substance Use Screening 03/26/2026 03/26/2025 Disability Screening 03/26/2026 03/26/2025 SDOH Screening 03/26/2026 03/26/2025 Tobacco Screening 08/06/2026 08/06/2025 DTaP/Tdap/Td Vaccines (8 - Td or Tdap) [...] Additional history exists HPV Vaccines Completed 08/11/2016, 040 11/2015, 12/09/2015 Hepatitis A Vaccines Completed 08/11/2016, 02/07/20 16 Meningococcal Vaccine Completed 04/22/2018, 013 Hepatitis C Screening Completed 01/28/2022 RSV under 20 months Aged Out No longe r eligible based on patient's age to complete this topic Rotavirus Vaccines Aged Out No longer eligible based on patient's age to complete this topic Procedures Procedure Name Priority Date/Time Associated Diagnosis Comments MAGNESIUM Routine 08/03/2025 1:36 PM EDT T4, FREE [...] (Gomez) (08/03/2025 1:36 PM EDT) IDNOW SERIAL# [id number] [facility] Influenza A Negative Negative [facility] Influenza B2 Negative Negative [facility] Influenza A B2 Note See Note [facility] Comment:The Gomez ID NOW In fluenza [...] LAB MICROBIOLOGY - GENERAL ORDERABLES Final Result Performing Organization Address City/State/[facility] Co de Phone Number [facility] [address] [place] [phone] * COVID-19 ID NOW (GOMEZ) (08/03/2025 1:36 PM EDT) IDNOW SERIAL# [id number] [facility] COVID-19 TEST Negative Negative [facility] COVID-19 NOTE See Note [facility] Comment: Results are for the identification of SARS-CoV2 RNA. TheSARS-CoV2 RNA is generally detectable in respiratory samplesduring the acute phase of infection. Positive results areindicative of the presence of SARS-CoV-2 RNA; clinicalcorrelation with patient history and other diagnosticinformation is necessary to determine patient infectionstatus. Positive results do not rule out bacterial infectionor co- infection with other viruses.Testing facilities within the [facility] and itsterritories are required to report all [...] use by authorized laboratories.Testing performed on the [employer] ID NOW utilizing NAAT. 08/03/2025 1:36 PM EDT 08/03/2025 1:41 PM EDT Generic External Data Provider LAB MOLECULAR DORIE GNOSTICS ORDERABLES Final Result Performing Organization Address [facility]/ZIP Co de Phone Number [facility] [address] [place] [phone] * (ABNORMAL) TSH with Reflex to Free T4 (08/03/2025 1:36 PM EDT) Pathologist [facility] TSH reflex Free T4 0.09(L) 0.32 - 4.0 uIU/mL [facility] 08/03/2025 1:36 PM EDT 08/03/2025 1:41 PM EDT M-SIX External Data Provider LAB BLOOD ORDERAB LES Final Result Performing Organization Address [facility]/ZIP Co de Phone Number [facility] [address] [place] [phone] * (ABNORMAL) CBC auto differential (08/03/2025 1:36 PM EDT) Pathologist [facility] White Blood Count 11.2(H) 4.8 - 10.8 X10*3/uL [facility] Red Blood Count 5.63 4.60 - 5.80 X10*6/uL [facility] Hemoglobin 15.8 14.0 - 18.0 g/dl [facility] Hematocrit 45.4 42.0 - 52.0 % [facility] Mean Corpuscular Volume 80.6 80.0 - 98.0 fL [facility] Mean Corpuscular Hemoglobin 28.1 27.0 - 33.0 pg [facility] Mean Corpuscular HGB Conc 34.8 31.0 - 36.0 g/dl [facility] Red Cell Distribution Width 12.8 11.0 - 16.0 % [facility] Platelet Count 270 160 - 400 X10*3/uL [facility] Mean Platelet Volume 9.4 9.4 - 12.4 fL [facility] Neutrophils Percent Auto 81.0(H) 45 - 73 % [facility] Imm Gran Pct Auto 0.3 0.0 - 0.4 % [facility] Lymphocytes Percent Auto 12.7(L) 20 - 40 % [facility] Monocytes Percent Auto 5.4 2 - 11 % [facility] Eosinophils Percent Auto 0.4 0 - 4 % [facility] Basophils Percent Auto 0.2 0 - 2 % [facility] NRBC Pct Auto 0.0 0.0 - 0.2 /100WBC [facility] Neutrophils Absolute Auto 9.1(H) 2.0 - 8.3 x10*3/uL [facility] Imm Gran Abs Auto 0.03 0.00 - 0.03 X10*3/uL [facility] Lymphocytes Absolute Auto 1.4 1.2 - 4.9 X10*3/uL [facility] Monocytes Absolute Auto 0.6 0.1 - 1.2 X10*3/uL [facility] Eosinophils Absolute Auto 0.0 0.0 - 0.4 X10*3/uL [facility] Basophils Absolute Auto 0.0 0.0 - 0.2 X10*3/uL [facility] NRBC Abs Auto 0.000 0.0 - 0.012 X10*3/uL [facility] 08/03/2025 1:36 PM EDT 08/03/2025 1:41 PM EDT us Generic External Data Provider LAB BLOOD ORDERAB LES Final Result [facility] [address] [place] [phone] * T4, Free (08/03/2025 1:36 PM EDT) Free T4 (Free Thyroxine) 1.18 0.71 - 1.85 ng/dL [facility] 08/03/2025 1:36 PM EDT 08/03/2025 1:41 PM EDT Generic External Data Provider LAB BLOOD ORDERAB LES Final Result Performing Organization Address [facility] Co de Phone Number [facility] [address] [place] [phone] * Magnesium (08/03/2025 1:36 PM EDT) Pathologist [facility] Magnesium 2.2 1.6 - 2.6 mg/dL [facility] 08/03/2025 1:36 PM EDT 08/03/2025 1:41 PM EDT Generic External Data Provider LAB BLOOD ORDERAB LES Final Result Performing Organization Address [facility] Co de Phone Number [facility] [address] [place] [phone] * Lipase (08/03/2025 1:36 PM EDT) Lipase 16 8 - 78 U/L [facility] 08/03/2025 1:36 PM EDT 08/03/2025 1:41 PM EDT Generic External Data Provider LAB BLOOD ORDERAB LES Final Result Performing Organization Address [facility] Co de Phone Number [facility] [address] [place] [phone] * (ABNORMAL) Comprehensive Metabolic Panel (08/03/2025 1:36 PM EDT) Sodium 140 135 - 145 mmol/L [facility] Potassium 3.8 3.3 - 5.1 mmol/L [facility] Comment:Slight Hemolysis.Int erpret result with caution. Chloride 111(H) 96 - 108 mmol/L [facility] Carbon Dioxide 21(L) 22 - 29 mmol/L [facility] Anion Gap 12 12 - 20 [facility] Urea Nitrogen (BUN) 13 9 - 16 mg/dL [facility] Creatinine, Serum 0.99 0.5 - 1.4 mg/dL [facility] Creatinine Clr Calc Pharmacy 134.3 [facility] Comment:eGFR (calculated fro m the MDRD study equation) and eCrCl(calculated from the Cockcroft-Gault equation) are based ondifferent parameters and may not yield comparable results.If eCrCl result is absurd, please check patient'sheight/weight. Estimated Glomerular Filt Rate >60 [facility] Comment:Chronic Kidney Disea se: Estimated GFR < 60 mL/min/1.25j7Naeqss Kidney Disease: Estimated GFR < 15 mL/min/1.73m2 Glucose 96 60 - 115 mg/dL [facility] Calcium 10.2 8.4 - 10.2 mg/dL [facility] Bilirubin, Total 1.1(H) 0.0 - 1.0 mg/dL [facility] Aspartate Amino Transferase 25 5 - 37 U/L [facility] Comment:Slight Hemolysis.Int erpret result with caution. Alanine Aminotransferase 18 0 - 40 U/L [facility] Total Protein 8.2(H) 6.5 - 8.0 g/dL [facility] Albumin Level 5.2(H) 3.5 - 5.0 g/dL [facility] Alkaline Phosphatase 102 39 - 117 U/L [facility] 08/03/2025 1:36 PM EDT 08/03/2025 1:41 PM EDT us Generic External Data Provider LAB BLOOD ORDERAB LES Final Result [facility] [address] [place] [phone] * XR Chest 2 Views (08/03/2025 12:55 PM EDT) Anatomical Region Laterality Modality Chest Radiographic Amanda ging 08/03/2025 12:5 5 PM EDT Narrative 08/03/2025 1:07 PM EDT [address] [address] XRay Report Signed Patient: Yong Yu MR #: [id number] : 2000 Acct:[id number] Age/Sex: 24 / M ADM Date: 08/03/25 Loc: HO.ED Attending Dr: Ordering Physician: Jorje Blackwood Date of Service: 08/03/25 Procedure(s): XR chest 2V Accession Number(s): [id number] cc: Cassidy Rodarte; Jorje Blackwood Reason for [...] 08/03/25 1304 DD/ 1255 TD/TT: 08/03/25 1257 Plasma Specialist: Procedure Note Donotuseinterpreter, Image - 08/03/[address] [address] XRay Report Signed Patient: Yong YuMR #: [id number] : 2000Acct:[id number] Age/Sex: 24 / MADM Date: 08/03/25 Loc: HO.ED Attending Dr: Ordering Physician: Jorje Blackwood Date of Service: 08/03/25 Procedure(s): XR chest 2V Accession Number(s): [id number] cc: Cassidy Rodarte; Jorje Blackwood Reason for [...] 08/03/25 1304 DD/ 1255 TD/TT: 08/03/25 1257 Plasma Specialist: [facility] External Provider IMG XR PROCEDURES Final Result * T-SPOT??.TB (07/03/2025 10:10 AM EDT) T Spot TB Negative Negative [facility] Comment:A negative test resu lt does [...] as aquantitative test. TS PANEL A 0 [facility] TS PANEL B 0 [facility] Negative Control Passed [facility] Positive Control Passed [facility] Comment:For additional infor roya, please refer tohttp://[employer].Kamicat/faq/ZYP559(This link is being provided for informational/educational purposes only.)THIS TEST WAS PERFORMED AT:[employer] [id number] [place] [address]LLEITJRSARMAD LOYA MD,PHD 07/03/2025 10:1 0 AM EDT 07/03/2025 11:06 AM EDT us Cassidy Rodarte MD LAB BLOOD ORDERABLES Final Res ult Performing Organization Address [facility] Co de Phone Number [facility] [address] [place] [phone] * HEPATITIS C AB W/REFL TO HCV RNA, QN, PCR (01/28/2022 8:08 AM EDT) HEPATITIS C ANTIBODY NON-REACT [facility] NON-REACT [facility] INDEX 0.02 <1.00 [facility] Comment: HCV antibody was non-reactive. There is no laboratory evidence of HCV infection. In most cases, no further action is required. However, if recent HCV exposure is suspected, a test for HCV RNA (test code 58628) is suggested. For additional information please refer to http://[employer]/faq/KGD91k1 (This link is being provided for informational/ educational purposes only.) 01/28/2022 8:08 AM EDT us Rossana Lucas BURNING SUPERVISOR HISTORICAL/NON ORDERABLE LABS Final Result Performing Organization Address [facility] Co de Phone Number [facility] [address] from Last 3 Months or Most Recently Relevant to Health Maintenance Insurance [place], [place] [facility] * Guarantor: Yong Yu Account Type Relation to Patient Date of Phone Billing Address Personal/Family Self [place], [place] Care Teams Putty Worker Relationship Specialty Start Date End Date Cassidy Rodarte MD [address] [place] [phone] PCP - General Family Medicine 07/11/24 Nikos Hercules, RN [address] [place] [phone] Registered Nurse Family Medicine 08/06/25 Khloe Snyder 08/06/25
--- OUTSIDE RECORDS SUMMARY | 2025-08-07 10:09 | XMS_ITS | Encounter Summary ---
Author Organization [email or web address] Address [address] [place] [address] 7 [place] [address] Care Team Providers Care Data Operations Manager Name Role Phone Cassidy Rodarte MD Primary Care Provider Nikos Hercules RN Unavailable [phone] Khloe Snyder Unavailable Reason for Visit * Reason Comments Care Coordination C3/W Khloe malin, Chart review Encounter Details Date Type Department Care Team (Latest Contact Info) Description 08/06/2025 Patient Outreach [facility] [address] [place], [place] [phone] Cassidy Rodarte MD [address] [place], [place] [phone] Care Coordination (C3[facility]/PJW Khloe Snyder, Chart review ) Social History Tobacco Use Types Packs/Day Years [...] the past 12 months, has t he [employer], gas, oil or water [employer] threatened to shut off services in your [...] AM EDT documented as of this encounter Progress Notes * Khloe Snyder - 08/06/2025 9:35 AM EDT [facility] Khloe Snyder reviewed chart review completed by OLEG Hercules RN: Benja Hercules RN, performed chart review, in anticipation of initial assessment with patient, as patient has stratified for C3 Adult Complex Care through the ADT feed. History significant for developmental academic disorder, JC, lactose intolerance, mixed receptive-expressive language disorder, hyperthyroidism, ADHD, intrinsic eczema, ingrown toenail without infection, tic disorder. Specialists include [facility], [facility]. ED visits within the last 12 months include C 08/03/25. Last appointment in PCP office on 03/26/25. No future appointment scheduled. documented in this encounter Plan of Treatment Not on file documented as of this encounter Visit Diagnoses Not on filedocumented in this encounter Additional Health Concerns Assessment Noted Time PHQ-9 Depression Total Score: 0 07/03/20 24 10:23 AM EDT documented as of this encounter Care Teams Data Operations Manager Relationship Specialty Start Date End Date Cassidy Rodarte MD [address] [place] [address] PCP - General Family Medicine 07/11/24 Nikos Hercules RN [address] [place] [phone] Registered Nurse Family Medicine 08/06/25 Khloe Snyder 08/06/25 documented as of this encounter
--- OUTSIDE RECORDS SUMMARY | 2025-08-07 10:09 | XMS_ITS | Encounter Summary ---
Author Organization [employer] Address [address] [facility] 7 [place] [address] Care Team Providers Care Ostrich Farmer Name Role Phone Cassidy Rodarte MD Primary Care Provider [phone] Encounter Details Date Type Department Care Team (Late st Contact Info) Description 08/03/2025 Orders Only [facility] External Provider, [facility] Social History Tobacco Use Types Packs/Day Years [...] the past 12 months, has t he [employer], gas, oil or water company threatened to [...] Diagnosis Comments INFLUENZA A B2 ID NOW (GOMEZ) Routine 08/03/2025 1:36 PM EDT COVID-19 ID NOW (GOMEZ) Routine 08/03/2025 1:36 PM EDT TSH W/REFLEX TO FT4 Routine 08/03/2025 1 :36 PM EDT CBC WITH AUTO DIFFERENTIAL Routine 08/03/2025 1:36 PM EDT T4, FREE Routine 08/03/2025 1:36 PM EDT MAGNESIUM Routine 08/03/2025 1:36 PM EDT LIPASE Routine 08/03/2025 1:36 PM EDT COMPREHENSIVE METABOLIC PANEL Routine 08/03/2025 1:36 PM EDT XR CHEST 2 VIEWS Routine 08/03/2025 12:5 5 PM EDT documented in this encounter Results * Magnesium (08/03/2025 1:36 PM EDT) Magnesium 2.2 1.6 - 2.6 mg/dL [facility] 08/03/2025 1:36 PM EDT 08/03/2025 1:41 PM EDT Generic External Data Provider LAB BLOOD ORDERAB LES Final Result Performing Organization Address [facility]/ZIP Co de Phone Number [facility] [address] [place] [phone] * T4, Free (08/03/2025 1:36 PM EDT) Free T4 (Free Thyroxine) 1.18 0.71 - 1.85 ng/dL [facility] 08/03/2025 1:36 PM EDT 08/03/2025 1:41 PM EDT Generic External Data Provider LAB BLOOD ORDERAB LES Final Result Performing Organization Address [facility]/ZIP Co de Phone Number [facility] [address] [place] [phone] * (ABNORMAL) TSH with Reflex to Free T4 (08/03/2025 1:36 PM EDT) TSH reflex Free T4 0.09(L) 0.32 - 4.0 uIU/mL [facility] 08/03/2025 1:36 PM EDT 08/03/2025 1:41 PM EDT Generic External Data Provider LAB BLOOD ORDERAB LES Final Result Performing Organization Address [facility]/ZIP Co de Phone Number [facility] [address] [place] [phone] * Lipase (08/03/2025 1:36 PM EDT) Lipase 16 8 - 78 U/L [facility] 08/03/2025 1:36 PM EDT 08/03/2025 1:41 PM EDT us Generic External Data Provider LAB BLOOD ORDERAB LES Final Result Performing Organization Address [facility] Co de Phone Number [facility] [address] [place] [phone] * (ABNORMAL) Comprehensive Metabolic Panel (08/03/2025 1:36 PM EDT) Sodium 140 135 - 145 mmol/L [facility] Potassium 3.8 3.3 - 5.1 mmol/L [facility] Comment:Slight Hemolysis.Int erpret result with caution. Chloride 111(H) 96 - 108 mmol/L [facility] Carbon Dioxide 21(L) 22 - 29 mmol/L [facility] Anion Gap 12 12 - 20 [facility] Urea Nitrogen (BUN) 13 9 - 16 mg/dL [facility] Creatinine, Serum 0.99 0.5 - 1.4 mg/dL [facility] Creatinine Clr Calc Pharmacy 134.3 [facility] Comment:eGFR (calculated fro m the MDRD study equation) and eCrCl(calculated from the Cockcroft-Gault equation) are based ondifferent parameters and may not yield comparable results.If eCrCl result is absurd, please check patient'sheight/weight. Estimated Glomerular Filt Rate >60 [facility] Comment:Chronic Kidney Disea se: Estimated GFR < 60 mL/min/1.61b8Ljmnso Kidney Disease: Estimated GFR < 15 mL/min/1.73m2 Glucose 96 60 - 115 mg/dL [facility] Calcium 10.2 8.4 - 10.2 mg/dL [facility] Bilirubin, Total 1.1(H) 0.0 - 1.0 mg/dL [facility] Aspartate Amino Transferase 25 5 - 37 U/L [facility] Comment:Slight Hemolysis.Int erpret result with caution. Alanine Aminotransferase 18 0 - 40 U/L [facility] Total Protein 8.2(H) 6.5 - 8.0 g/dL [facility] Albumin Level 5.2(H) 3.5 - 5.0 g/dL [facility] Alkaline Phosphatase 102 39 - 117 U/L [facility] 08/03/2025 1:36 PM EDT 08/03/2025 1:41 PM EDT us Generic External Data Provider LAB BLOOD ORDERAB LES Final Result [facility] [address] [place] [phone] * COVID-19 ID NOW ([employer]) (08/03/2025 1:36 PM EDT) IDNOW SERIAL# [id number] [facility] COVID-19 TEST Negative Negative [facility] COVID-19 NOTE See Note [facility] Comment: Results are for the identification of SARS-CoV2 RNA. TheSARS-CoV2 RNA is generally detectable in respiratory samplesduring the acute phase of infection. Positive results areindicative of the presence of SARS-CoV-2 RNA; clinicalcorrelation with patient history and other diagnosticinformation is necessary to determine patient infectionstatus. Positive results do not rule out bacterial infectionor co- infection with other viruses.Testing facilities within the [facility] and itsterritories are required to [...] GNOSTICS ORDERABLES Final Result Performing Organization Address [facility] Co de Phone Number [facility] [address] [place] [phone] * Influenza A B2 ID NOW (Gomez) (08/03/2025 1:36 PM EDT) Pathologist [facility] IDNOW SERIAL# [id number] [facility] Influenza A Negative Negative [facility] Influenza B2 Negative Negative [facility] Influenza A B2 Note See Note [facility] Comment:The Gomez ID NOW In [...] GENERAL ORDERABLES Final Result Performing Organization Address [facility] Co de Phone Number [facility] [address] [place] [phone] * (ABNORMAL) CBC auto differential (08/03/2025 1:36 PM EDT) Pathologist [facility] White Blood Count 11.2(H) 4.8 - 10.8 X10*3/uL [facility] Red Blood Count 5.63 4.60 - 5.80 X10*6/uL [facility] Hemoglobin 15.8 14.0 - 18.0 g/dl [facility] Hematocrit 45.4 42.0 - 52.0 % [facility] Mean Corpuscular Volume 80.6 80.0 - 98.0 fL [facility] Mean Corpuscular Hemoglobin 28.1 27.0 - 33.0 pg [facility] Mean Corpuscular HGB Conc 34.8 31.0 - 36.0 g/dl [facility] Red Cell Distribution Width 12.8 11.0 - 16.0 % [facility] Platelet Count 270 160 - 400 X10*3/uL [facility] Mean Platelet Volume 9.4 9.4 - 12.4 fL [facility] Neutrophils Percent Auto 81.0(H) 45 - 73 % [facility] Imm Gran Pct Auto 0.3 0.0 - 0.4 % [facility] Lymphocytes Percent Auto 12.7(L) 20 - 40 % [facility] Monocytes Percent Auto 5.4 2 - 11 % [facility] Eosinophils Percent Auto 0.4 0 - 4 % [facility] Basophils Percent Auto 0.2 0 - 2 % [facility] NRBC Pct Auto 0.0 0.0 - 0.2 /100WBC [facility] Neutrophils Absolute Auto 9.1(H) 2.0 - 8.3 x10*3/uL [facility] Imm Gran Abs Auto 0.03 0.00 - 0.03 X10*3/uL [facility] Lymphocytes Absolute Auto 1.4 1.2 - 4.9 X10*3/uL [facility] Monocytes Absolute Auto 0.6 0.1 - 1.2 X10*3/uL [facility] Eosinophils Absolute Auto 0.0 0.0 - 0.4 X10*3/uL [facility] Basophils Absolute Auto 0.0 0.0 - 0.2 X10*3/uL [facility] NRBC Abs Auto 0.000 0.0 - 0.012 X10*3/uL [facility] 08/03/2025 1:36 PM EDT 08/03/2025 1:41 PM EDT us Generic External Data Provider LAB BLOOD ORDERAB LES Final Result [facility] [address] [place] [phone] * XR Chest 2 Views (08/03/2025 12:55 PM EDT) Anatomical Region Laterality Modality Chest Radiographic Amanda ging 08/03/2025 12:5 5 PM EDT Narrative 08/03/2025 1:07 PM EDT [address] [address] XRay Report Signed Patient: Yong Yu MR #: [id number] : 2000 Acct:[id number] Age/Sex: 24 / M ADM Date: 08/03/25 Loc: .ED Attending Dr: Ordering Physician: Jorje Blackwood Date of Service: 08/03/25 Procedure(s): XR chest 2V Accession Number(s): [id number] cc: Cassidy Rodarte; Jorje Blackwood Reason for [...] 08/03/25 1304 DD/ 1255 TD/TT: 08/03/25 1257 Case Assembler: Procedure Note Donotuseinterpreter, Image - 08/03/2025 [facility] [address] [place] [address] XRay Report Signed Patient: Yong YuMR #: [id number] : 2000Acct:[id number] Age/Sex: 24 / MADM Date: 08/03/25 Loc: .ED Attending Dr: Ordering Physician: Jorje Blackwood Date of Service: 08/03/25 Procedure(s): XR chest 2V Accession Number(s): [id number] cc: Cassidy Rodarte; Jorje Blackwood Reason for [...] 08/03/25 1304 DD/ 1255 TD/TT: 08/03/25 1257 Case Assembler: [facility] External Provider IMG XR PROCEDURES Final Result documented in this encounter Visit Diagnoses Not on filedocumented in this encounter Additional Health Concerns Assessment Noted Time PHQ-9 Depression Total Score: 0 07/03/20 24 10:23 AM EDT documented as of this encounter Care Teams Ostrich Farmer Relationship Specialty Start Date End Date Cassidy Rodarte MD [address] [place] [address] PCP - General Family Medicine 07/11/24 documented as of this encounter
--- OUTSIDE RECORDS SUMMARY | 2025-08-07 10:09 | XMS_ITS ---
Author Organization [employer] Address [address] [place] [address] Care Team Providers Care Money Market Dealer Name Role Phone Cassidy Rodarte MD Primary Care Provider [phone] Nikos Hercules RN Unavailable [phone] Khloe Snyder Unavailable CM Complex Status:Outreach In Progress (Enrolling) Start date:08/06/2025 Enrollment reason:ADT Feed Overview ED- Pt went to [facility] ED on 08/03/25. Case Team Name Relationship Phone Nikos Hercules RN(Responsible Staff) Registered Cam whiteside [phone] Continued Care and Services Coordination
--- OUTSIDE RECORDS SUMMARY | 2025-08-07 10:09 | XMS_ITS | Encounter Summary ---
Author Organization [employer] Address [address] [place] [address] 7 [place] [address] Care Team Providers Care Topography Technician Name Role Phone Cassidy Rodarte MD Primary Care Provider [phone] Nikos Hercules RN Unavailable [phone] Khloe Snyder Unavailable Encounter Details Date Type Department Care Team (Late st Contact Info) Description 08/06/2025 Patient Outreach [facility] [address] [place], [place] [phone] Cassidy Rodarte MD [address] [place], [place] [phone] Social History Tobacco Use Types Packs/Day Years [...] Progress Notes * Khloe Snyder - 08/06/2025 12:18 PM EDT CHW Khloe Snyder, placed outbound call to patient introducing herself from [facility] CM Department, in regards to offering for C3 Adult Complex Care Program. Patient's name and was confirmed. Patient agrees to participate in program. Appt. for initial assessment scheduled for 08/27/25 @ 10:00 AM with CM/RN Nikos Hercules. Patient declined ED f/u appointment. Patient stated that he will call to schedule. CHW reinforced direct contact information or CM for any additional questions or concerns and extended clinic hours on Mondays and Wednesdays, andWalk-In Urgent Care Located [facility]. Patient provided with after-hours line for [facility], , which offer night triage service and option to transfer to salon sales consultant provider if needed. Patient verbalizes understanding, and able to repeat back to keno writer. documented in this encounter Plan of Treatment Not on file documented as of this encounter Visit Diagnoses Not on filedocumented in this encounter Additional Health Concerns Assessment Noted Time PHQ-9 Depression Total Score: 0 07/03/20 24 10:23 AM EDT documented as of this encounter Care Teams Topography Technician Relationship Specialty Start Date End Date Cassidy Rodarte MD [address] [place] [address] PCP - General Family Medicine 07/11/24 Nikos Hercules, RN [address] [place] [address] Registered Nurse Family Medicine 08/06/25 Khloe Snyder 08/06/25 documented as of this encounter
--- OUTSIDE RECORDS SUMMARY | 2025-08-07 10:09 | XMS_ITS | Encounter Summary ---
Author Organization [employer] Address [address] [facility] 7t [place] [address] Care Team Providers Care Assisted Living Care Manager Name Role Phone Cassidy Rodarte MD Primary Care Provider [phone] Nikos Hercules RN Unavailable [phone] Khloe Snyder Unavailable Encounter Details Date Type Department Care Team (Latest Contact Info) Description 08/07/2025 Travel Social History Tobacco Use Types Packs/Day [...] documented as of this encounter Care Teams Assisted Living Care Manager Relationship Specialty Start Date End Date Cassidy Rodarte MD [address] [place] [address] PCP - General Family Medicine 07/11/24 Nikos Hercules, MAO [address] [place] [phone] Registered Nurse Family Medicine 08/06/25 Khloe Snyder 08/06/25 documented as of this encounter
--- OUTSIDE RECORDS SUMMARY | 2025-08-07 10:09 | XMS_ITS | Encounter Summary ---
Author Organization [employer] Address [address] [place] [address] 7 [place] [address] Care Team Providers Care Clay Stain Mixer Name Role Phone Cassidy Rodarte MD Primary Care Provider [phone] Nikos Hercules RN Unavailable [phone] Khloe Snyder Unavailable Reason for Visit * Reason Onset Date Comments ER Follow-up 08/06/2025 Encounter Details Date Type Department Care Team (Late st Contact Info) Description 08/06/2025 Telephone [facility] [address] [place], [place] [phone] Cassidy Rodarte MD [address] [place], [place] [phone] ER Follow-up Social History Tobacco Use Types Packs/Day Years [...] got money to buy more: Sometimes True 05/19/ 2025 Within the past 12 months,th e food [...] the past 12 months, has t he [employer], [employer], oil or water [employer] threatened to shut off services in your [...] AM EDT documented as of this encounter Miscellaneous Notes * Telephone Encounter - Marcela Davis RN - 08/06/2025 4:25 PM EDT Noted. Patient seen in [facility] today at 2:40pm (after below message) by Dr. Erickson. No further f/u needed at this time. * Telephone Encounter - Christina Galindo - 08/06/2025 12:55 PM EDT Pt walked in requesting ed follow up visit at [facility] on Wednesday. Pt was seen for hyperthyroidism.Pt states he doesn't feel well at all. Pt is barely eating as it bother him to swallow. Pt reports levels are low and would like to see pcp ambreen. documented in this encounter Plan of Treatment Not on file documented as of this encounter Visit Diagnoses Not on filedocumented in this encounter Additional Health Concerns Assessment Noted Time PHQ-9 Depression Total Score: 0 07/03/20 24 10:23 AM EDT documented as of this encounter Care Teams Clay Stain Mixer Relationship Specialty Start Date End Date Cassidy Rodarte MD [address] [place] [address] PCP - General Family Medicine 07/11/24 Nikos Hercules RN [address] [place] [phone] Registered Nurse Family Medicine 08/06/25 Khloe Snyder 08/06/25 documented as of this encounter
--- OUTSIDE RECORDS SUMMARY | 2025-08-07 10:09 | XMS_ITS | Encounter Summary ---
Author Organization [employer] Address [address] [facility] 7 [place] [address] Care Team Providers Care Passenger Train Braker Name Role Phone Cassidy Rodarte MD Primary Care Provider [phone] Nikos Hercules RN Unavailable [phone] Khloe Snyder Unavailable Reason for Visit * Reason Comments Care Coordination C3CM- chart review Encounter Details Date Type Department Care Team (Latest Contact Info) Description 08/06/2025 Patient Outreach [facility] [address] [place] [address] Cassidy Rodarte MD [address] [place] [address] Care Coordination (C3CM- chart review) Social History Tobacco Use Types Packs/Day Years [...] the past 12 months, has t he [employer], gas, oil or water [employer] threatened to shut off services in your [...] as of this encounter Progress Notes * Nikos Hercules RN - 08/06/2025 9:12 AM EDT OLEG Hercules RN, performed chart review, in anticipation of initial assessment with patient, aspatient has stratified for C3 Adult Complex Care through the ADT feed. History significant for developmental academic disorder, JC, lactose intolerance, mixed receptive-expressive language disorder, hyperthyroidism, ADHD, intrinsic eczema, ingrown toenail without infection, tic disorder. Specialists include [facility], [facility]. ED visits within the last 12 months include C 08/03/25. Last appointment in PCP office on 03/26/25. No future appointment scheduled. documented in this encounter Plan of Treatment Not on file documented as of this encounter Visit Diagnoses Not on filedocumented in this encounter Additional Health Concerns Assessment Noted Time PHQ-9 Depression Total Score: 0 07/03/20 10:23 AM EDT documented as of this encounter Care Teams Passenger Train Braker Relationship Specialty Start Date End Date Cassidy Rodarte MD [address] [place] [address] PCP - General Family Medicine 07/11/24 Nikos Hercules RN [address] [place] [phone] Registered Nurse Family Medicine 08/06/25 Khloe Snyder 08/06/25 documented as of this encounter
--- OUTSIDE RECORDS SUMMARY | 2025-08-07 10:09 | XMS_ITS ---
Author Organization [employer] Address [address] [place] [address] Care Team Providers Care First Aid Trainer Name Role Phone Cassidy Rodarte MD Primary Care Provider [phone] Nikos Hercules RN Unavailable [phone] Khloe Snyder Unavailable CHW Complex Status:Outreach In Progress (Enrolling) Start date:08/06/2025 Enrollment reason:ADT Feed Overview ED- Pt went to [facility] ED on 08/03/25. Case Team Name Relationship Phone Khloe Snyder(Responsible Staff) [phone] Continued Care and Services Coordination
--- OUTSIDE RECORDS SUMMARY | 2025-08-07 10:09 | XMS_ITS | Encounter Summary ---
Author Organization [employer] Address [address] [place] [address] 7 [place] [address] Care Team Providers Care Snaker Tractor Driver Name Role Phone Cassidy Rodarte MD Primary Care Provider [phone] Nikos Hercules RN Unavailable [phone] Khloe Snyder Unavailable Encounter Details Date Type Department Care Team (Late st Contact Info) Description 08/06/2025 Patient Outreach [facility] [address] [place], [place] [phone] Cassidy Rodarte MD [address] [place], [place] [phone] Social History Tobacco Use Types Packs/Day Years [...] documented as of this encounter Care Teams Snaker Tractor Driver Relationship Specialty Start Date End Date Cassidy Rodarte MD [address] [place] [address] PCP - General Family Medicine 07/11/24 Nikos Hercules RN [address] [place] [address] Registered Nurse Family Medicine 08/06/25 Khloe Snyder 08/06/25 documented as of this encounter
[2025-08-07 12:19] LABS: Hemoglobin A1C 134.1389 umol/L; Total Hemoglobin (HGBA1C) 4083.1995 umol/L
[2025-08-07 12:55] LABS: Free T4 (Free Thyroxine) 1.31 ng/dL (0.71-1.85); Thyroid Stimulating Hormone 0.02 uIU/mL (0.32-4.0)
== END 2025-08-07 09:21 | disposition home or self-care (01) ==
LOC: HO.HHCL 09:20
PROVIDERS: PCP General Practice; Visit Provider Internal Medicine
DX: E05.90 Thyrotoxicosis, unspecified without thyrotoxic crisis or storm (principal); R63.1 Polydipsia
CPT/HCPCS: 36415; 83036; 84436; 84439; 84443; 84480; 84481; 85652

== ENCOUNTER 2025-08-21 13:55 | Outpatient (AMB) | payer MEDICAID, SELFPAY ==
--- NOTE | 2025-08-21 13:56 | A.OFFVIS_ITS ---
Vital Signs 08/21/25 14:02 Height 5 ft 7 in Weight 224 lb 13.944 oz BMI 35.2 BP 120/80 Blood Pressure Location Rt brachial Position Sitting Pulse 86 Pulse Source Pulse Oximeter Pulse Oximetry (%) 98 Oxygen Delivery Method Room Air Intake Visit Reasons: Hyperthyroidism Intake Note: NEW Patient presents today to establish care for Hyperthyroidism: No acute complaints reported at this time Tea Leaf Reader Required: No Accompanied by: Self / Same As Patient Allergies No Known Allergies (No Known Allergies*) Allergy (Verified 08/21/25 13:57) HPI Comments Details: The patient is a 24-year-old male presenting with hyperthyroidism management. He was diagnosed with hyperthyroidism approximately two years ago and has been under treatment with methimazole since then. The patient reports that his hyperthyroidism symptoms have worsened over the past three weeks, including shortness of breath, diarrhea, lack of appetite, and a weight loss of 14 pounds within a week. The patient was initially stable on a methimazole dose of 7.5 mg, but due to recent exacerbation of symptoms, the dose was increased to 10 mg two weeks ago. He admits to occasional non-adherence to the medication regimen, which may have contributed to the instability of his condition. He reports that his symptoms have improved since methismazole dose was increased. The patient has a history of Grave's disease, which was mentioned during his initial diagnosis of hyperthyroidism. There has been no discussion of definitive therapy options such as radioactive iodine or surgery until the current visit. The patient also has a history of anxiety disorder and ADHD, which he reports can interfere with his medication adherence. He experiences increased anxiety when his thyroid levels are low, exacerbating his symptoms. 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 - He reports that his health condition affects his daily life, including his studies and work. Family History: - Family history of thyroid problems, including hyperthyroidism in the patient's mother. Physical exam: General: Well appearing. NAD. Not Cushingoid or Acromegalic Neck/Thyroid: Thyroid not palpable, no nodules. Eyes: No conjunctival injection, not lid lag or proptosis CV: RRR, no murmur. No edema. Resp:Lungs clear to auscultation bilaterally Abdomen: Soft, nontender. nondistended Extremities/Neuro: No weakness or tremor of outstretched hands Laboratory Tests 03/20/23 08/03/25 08/07/25 21:50 13:36 09: WBC 8.4 11.2 H TSH 0.09 L 0.02 L Free T4 1.18 1.31 Total T3 137 Thyroid ultrasound 04/13/2023 FINDINGS: SIZE: Measurements of the thyroid lobes and nodules are given in sagittal, anteroposterior and transverse dimensions respectively. Right Thyroid Lobe: 5.5 x 1.8 x 1.7 cm, volume 8.8 mL. Parenchyma: The gland echotexture is heterogeneous. Thyroid vascularity is normal. Left Thyroid Lobe: 5.5 x 1.4 x 1.7 cm, volume 6.9 mL. Parenchyma: The gland echotexture is heterogeneous. Thyroid vascularity is normal. Isthmus: 0.2 cm in maximum AP dimension. No focal thyroid nodule is seen. NODES: At right level II, 1.7 x 0.6 x 1.9 cm and 2.4 x 0.7 x 1.97 reniform lymph nodes are seen. Left level II, a 2.8 x 0.9 x 2.1 cm reniform lymph node is seen. IMPRESSION: 1. There is heterogeneous thyroid echotexture, consistent with thyroiditis. 2. Thyroid dimensions are upper normal. 3. Mildly enlarged bilateral cervical lymph nodes are seen, likely reactive. These should be managed on a clinical basis. If of continued clinical concern, consider follow-up ultrasound imaging in 3-6 months to ensure stability/regression. FOR[facility] Medical History (Updated 08/04/25 @ 00:00 by Krystian Gaspar) Asthma Anxiety Surgical History (Updated 08/21/25 @ 14:09 by FABY Redman) No pertinent past surgical history Family History (Updated 08/21/25 @ 13:57 by FABY Redman) Father No problems noted. Mother No problems noted. Social History (Updated 08/21/25 @ 14:00 by FABY Redman) Alcohol intake: never Patient Tobacco Use Status: Never used Tobacco Physical Exam Vital Signs: Last Vital Signs Pulse 86 08/21/25 14:02 BP 120/80 08/21/25 14:02 Pulse Ox 98 08/21/25 14:02 Oxygen Delivery Method Room Air 08/21/25 14:02 BMI result Body Mass Index 35.2 Assessment & Plan Assessment & Plan (1) Hyperthyroidism: Code(s): E0 - Thyrotoxicosis, unspecified without thyrotoxic crisis or storm Category: Medical Plan Hypothyroidism History of Graves disease diagnosed 2 years ago, which was initially taking care of by endocrinology at [facility]. Patient refers to us now because he was unable to be seen at [facility] and he was having hypothyroid symptoms. The plan includes continuing methimazole at the current dose of 10 mg daily and monitoring the patient's thyroid function in four weeks to assess the response to the increased dosage. Propranolol will be added to help manage symptoms such as palpitations and anxiety, which are associated with hyperthyroidism. The patient was informed about the potential side effects of methimazole, including liver damage and agranulocytosis, and the importance of considering definitive therapy options such as radioactive iodine or surgery was discussed. The patient will be referred to a high-volume surgeon to discuss surgical options and potential complications, ensuring informed decision-making. We will obtain an ultrasound to rule out the presence of thyroid nodules. An iodine uptake test will be scheduled to confirm the diagnosis of hyperthyroidism, with instructions to stop methimazole five to seven days prior to the test. The patient will be seen for follow-up in three months, with the possibility of an earlier appointment if necessary. Orders: Orders NM thyroid w uptake Today E0 - Thyrotoxicosis, unspecified without thyrotoxic crisis or storm Thyroid Stimulating Hormone 4 Weeks E05. - Thyrotoxicosis, unspecified without thyrotoxic crisis or storm Thyrotropin Receptor Antibody 4 Weeks E0. - Thyrotoxicosis, unspecified without thyrotoxic crisis or storm Free T4 (Free Thyroxine) 4 Weeks E0 - Thyrotoxicosis, unspecified without thyrotoxic crisis or storm Triiodothyronine T3 Total 4 Weeks E05. - Thyrotoxicosis, unspecified without thyrotoxic crisis or storm Thyroid Stimulating Immunoglob 4 Weeks E05 - Thyrotoxicosis, unspecified without thyrotoxic crisis or storm US thyroid Today E05.90 - Thyrotoxicosis, unspecified without thyrotoxic crisis or storm Complete Blood Count Auto Diff 4 Weeks E05.90 - Thyrotoxicosis, unspecified without thyrotoxic crisis or storm Medications: New propranolol 10 mg PO BID 60 tabs 1RF Discontinued hydroxyzine HCl Discontinued Reason: Doctor's Order 25 mg PO TID PRN 14 tabs 0RF anxiety Patient Instructions: Continue Methimazole 10 mg daily Take Propranolol 10 mg twice daily Will repeat thyroid tests in 4 weeks When uptake scan scheduled, stop methimazole 7 days prior to the test day Hyperthyroidism: Foods and Medications to Avoid Foods to Avoid or Limit: Iodine-rich foods: Seaweed (kelp, yaakov, dulse, kombu) Iodized salt Fish and shellfish Dairy products (milk, cheese, yogurt) Egg yolks Foods that may worsen symptoms: Caffeinated beverages (coffee, tea, energy drinks, cola) Highly processed foods high in sugar and fat Supplements containing iodine: Multivitamins with iodine Herbal supplements with seaweed or kelp Medications and Supplements to Avoid or Use with Caution: Iodine-containing medications: Amiodarone (Cordarone, Pacerone) Some contrast dyes used in imaging studies Decongestants and stimulants: Pseudoephedrine (found in some cold medications) Ephedrine Biotin supplements: High doses can interfere with thyroid function tests Other supplements: Herbal supplements with unknown or unlisted ingredients General Tips: Always check labels for iodine content. Inform your healthcare team about all medications and supplements you are taking. Avoid sudden dietary changes, especially regarding iodine intake. If you have questions about specific foods or medications, please contact your healthcare provider. Coding Level of Care Code Tele New Pt Level 4 (33745) Diagnoses Hyperthyroidism E05.90 Time Spent (min) 50 Comment Time spent on review of previous records, history, exam/plan and patient education.
[2025-08-21 14:02] VITALS: BP 120/80; PULSE 86; O2SAT 98; BMI 35.2
== END 2025-08-21 14:46 | disposition home or self-care (01) ==
LOC: HO.ENCR 13:56
PROVIDERS: PCP General Practice; Visit Provider Student in an Organized Health Care Education/Training Program
DX: E05.90 Thyrotoxicosis, unspecified without thyrotoxic crisis or storm (principal)
CPT/HCPCS: 99204

== ENCOUNTER → 2025-08-21 13:55 | Outpatient (BNVA) | payer MEDICAID, SELFPAY | PROVIDERS: PCP General Practice; Visit Provider Student in an Organized Health Care Education/Training Program | DX: E05.90 Thyrotoxicosis, unspecified without thyrotoxic crisis or storm (principal); R06.02 Shortness of breath; R19.7 Diarrhea, unspecified | CPT/HCPCS: 99202 ==

== ENCOUNTER 2025-10-11 09:21 | Outpatient (REF) | payer MEDICAID, SELFPAY ==
--- NOTE | ~2025-10-11 | US_ITS ---
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 TECHNIQUE: Linear transducer grayscale and color Doppler examination with attention to the region of the thyroid. According to the technologist notes, suboptimal images secondary to patient's having a hard time breathing. FINDINGS: SIZE: Measurements of the thyroid lobes and nodules are given in sagittal, anteroposterior and transverse dimensions respectively. Right Thyroid Lobe: 5.7 x 2.1 x 1.7 cm, volume 10.3 ml. Parenchyma: The gland echotexture is less heterogeneous than previous examination. Thyroid vascularity is normal. Left Thyroid Lobe: 5.8 x 2.0 x 1.5 cm, volume 9.1 ml. Parenchyma: The gland echotexture is less heterogeneous than previous examination. Thyroid vascularity is normal. Isthmus: 0.4 cm in maximum AP dimension. No thyroid nodules seen. NODES: No lymphadenopathy is seen in the tissue surrounding the thyroid gland. Identified lymph nodes have benign appearance as follows: Right neck level II:1.4 x 0.3 x 0.9 cm; 0.9 x 0.3 x 0.7 cm and 1.0 x 0.3 x 1.0 cm. Previously seen left neck level II lymph node could not be seen today. US/US thyroid IMPRESSION: 1. No thyroid nodules. 2. Less heterogeneous appearance of the thyroid gland compared to the study in 2022. Electronically signed by: Paulo Baird MD 10/11/2025 10:38 AM [facility]
--- OUTSIDE RECORDS SUMMARY | 2025-10-11 10:29 | XMS_ITS ---
Author Organization [employer] Address [address] [place] [address] Care Team Providers Care Checking Department Supervisor Name Role Phone Cassidy Rodarte MD Primary Care Provider [phone] Nikos Hercules RN Unavailable [phone] Khloe Snyder Unavailable CM Complex Status:Enrolled (Active) Start date:08/06/2025 Enrollment date:08/27/2025 Enrollment reason:ADT Feed Overview ED- Pt went to [facility] ED on 08/03/25. Case Team Name Relationship Phone Nikos Hercules RN(Responsible Staff) Registered Cam whiteside [phone] Continued Care and Services Coordination
--- OUTSIDE RECORDS SUMMARY | 2025-10-11 10:29 | XMS_ITS ---
Author Organization [employer] Address [address] [place] [address] Care Team Providers Care Ballistics Expert Name Role Phone Cassidy Rodarte MD Primary Care Provider [phone] Nikos Hercules RN Unavailable [phone] Khloe Snyder Unavailable CH[facility] Complex Status:Enrolled (Active) Start date:08/06/2025 Enrollment date:09/28/2025 Enrollment reason:ADT Feed Overview ED- Pt went to [facility] ED on 08/03/25. Case Team Name Relationship Phone Khloe Snyder(Responsible Staff) [phone] Continued Care and Services Coordination
--- OUTSIDE RECORDS SUMMARY | 2025-10-11 10:29 | XMS_ITS | Encounter Summary ---
Author Organization [employer] Address [address] [place] [address] [address] [place] [address] Care Team Providers Care Pony Rougher Name Role Phone Quyen Fatima Primary Care Provider [phone] Cassidy Rodarte MD Primary Care Provider Nikos Hercules RN Unavailable [phone] Khloe Snyder Unavailable Encounter Details Date Type Department Care Team (Late st Contact Info) Description 04/07/2023 Orders Only [facility] [address] [place] [address] Quyen Fatima FNP [address] [place] [address] Low TSH level (Primary Dx) Social History [...] as of this encounter Plan of Treatment Upcoming Encounters Date Type Department Care Team (Late st Contact Info) Description 10/17/2025 4:00 PM EST Office Visit [facility] [address] [place] [address] Cassidy Rodarte MD [address] [place], [place] [id number] Scheduled Orders Name Type Priority Associated Diagnoses [...] AM EDT Narrative 04/15/2023 1:03 PM EDT [facility] [address] [place] [address] [place] [address] Ultrasound Report Signed Patient: Yong Yu MR #: [id number] : 2000 Acct:[id number] Age/Sex: 22 / M ADM Date: 04/13/23 Loc: .[facility]GCX Attending Dr: Quyen Fatima [employer]BUTION ENGINEER Ordering Physician: Quyen Fatima NP Date of Service: 04/13/23 Procedure(s): US thyroid Accession Number(s): [id number] cc: Quyen Fatima NP EXAMINATION: US THYROID [...] in OV> 04/15/23 1301 DD/ 1052 TD/TT: Hse Manager: [facility] Note Donotuseinterpreter, Image - 05/06/2023 [facility] [address] [place] [address] [place] [address] Ultrasound Report Signed Patient: Yong YuMR #: [id number] : 2000Acct:[id number] Age/Sex: 22 / MADM Date: 04/13/23 Loc: HO.HMGCX Attending Dr: Quyen Fatima NP Ordering Physician: Quyen Fatima NP Date of Service: 04/13/23 Procedure(s): US thyroid Accession Number(s): [id number] cc: Quyen Fatima NP EXAMINATION: US THYROID [...] in OV> 04/15/23 1301 DD/ 1052 TD/TT: Hse Manager: MACIEJ [employer] Provider Result Type Result Stat us [facility] External Provider IMG US PROCEDURES Final Result documented in this encounter Visit Diagnoses Diagnosis Low TSH level- Primary documented in this encounter Additional Health Concerns Assessment Noted Time PHQ-9 Depression Total Score: 8 03/31/20 23 2:15 PM EDT documented as of this encounter Care Teams Pony Rougher Relationship Specialty Start Date End Date Quyen Fatima FNP [address] [place] [address] PCP - General Family Medicine 03/22/23 07/10/24 Cassidy Rodarte MD [address] [place] [address] PCP - General Family Medicine 07/11/24 Nikos Hercules, MAO [address] [place] [address] Registered Nurse Family Medicine 08/06/25 Khloe Snyder 08/06/25 documented as of this encounter
--- OUTSIDE RECORDS SUMMARY | 2025-10-11 10:29 | XMS_ITS | Clinical Summary ---
Author Organization [employer] Address [address] [place] [address] [address] [place] [address] Care Team Providers Care Sales Service Technician Name Role Phone Cassidy Rodarte MD Primary Care Provider [phone] Nikos Hercules RN Unavailable [phone] Khloe Snyder Unavailable Allergies No known active allergies Medications Oral Electrolytes (Pedialyte) pack mix one packet in with large glass of water and take small sips prn diarrhea 2 Active triamcinolone (Kenalog) 0.1 % creamIndications :Intrinsic eczema Apply topically if needed in the morning and at bedtime for rash (dry skin on arms and feet). 30 g 2 5 Active Skin Protectants, Misc. (Minerin Creme) creamIndications :Intrinsic eczema Apply 1 Application topically if needed (dry skin). 454 g 1 5 Active cholecalciferol (Vitamin D-3) 50 MCG (1999 UT) capsule Take 1 capsule (50 mcg) by mouth Once per day. 90 capsule 3 5 Active methIMAzole (Tapazole) 10 MG tablet Take 1 tablet (10 mg) by mouth Once per day. 90 tablet 3 5 08/08/20 26 Active hydrOXYzine pamoate (Vistaril) 50 MG capsuleIndicatio ns:Generalized anxiety disorder Take 1 capsule (50 mg) by mouth every 8 (eight) hours if needed for anxiety for up to 10 days. 90 capsule 5 Active Active Problems Problem Noted Date Diagnosed Date Diarrhea 08/10/2025 Polydipsia 08/06/2025 Assessment & Plan (08/08/2025 1:31 PM EDT): Ro DM, check A1c Hyperthyroidism 09/25/2024 Assessment & Plan (08/10/2025 4:08 PM EDT): I put an urgent referral in for endocrinology for Dr. Wisdom as per patient request Methimazole dose was recently adjusted he has been taking it just for a couple of days I let him know it is too soon for new labs and to go up on the dose he understood I explained to him the constellation of symptoms seems to be related to his hypothyroidism I will prescribe for him medication for symptomatic relief Assessment & Plan (08/08/2025 1:31 PM EDT): On Methimazole 7.5mg daily. I will repeat complete TFTs and if he has over hyperthyroidism, I will increase meds. He's advised to schedule and aptp with [facility] endocrinology and FU with PCP for further work up. If he has subclinical hyperthyroidism, I will consider PRD if there are signs of inflammation, I will call back prn abn results. He will take tylenol prn for now for sore throat. He may be coming down with a viral illness vs thyroiditis, FU lab rusts.. Intrinsic eczema 09/25/2024 Ingrown toenail without infection 09/25/2024 Lactose intolerance 10/08/2022 Generalized anxiety disorder 02/15/2013 Assessment & Plan (08/10/2025 4:08 PM EDT): Patient is extremely anxious he is on hydroxyzine 25 mg every 8 hours as needed I went up on the dose to 50 mg every 8 hours as needed and advised to start taking again his central line (he tells me he stopped taking it because he was afraid it was interaction with his methimazole) advised to follow-up with therapist and PCP Mixed receptive-expressive language disorder 08/2013 Tic disorder 02/15/2013 ADHD 01/25/2013 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 Resolved Problems Problem Noted Date Diagnosed Date Resolved Date Asthma 09/25/2024 03/26/2025 Low TSH level 09/25/2024 03/26/2025 Encounters Date Type Department Care Team Description 10/08/2025 Patient Outreach [address] [address] Cassidy Rodarte MD Pre-visit Planning (SDOH screening completed on 09/28/2025) 09/03/2025 Patient Outreach [address] [address] Cassidy Rodarte MD Care Coordination (C3/CHW Khloe Snyder, Sdoh assessment ) 08/28/2025 Plan of Care Documentation [address] [address] 08/27/2025 Patient Outreach [facility] [address] [place] [address] [phone] Cassidy Rodarte MD Care Management (C3- Initial assessment/enrollment) 08/10/2025 1:40 PM EDT [facility] [address] [address] Vicki Wright MD Hyperthyroidism; Generalized anxiety disorder; Diarrhea, unspecified type 08/10/2025 Travel 08/08/2025 Results Follow-Up [address] [address] Berenice Erickson MD T3, Free, T3, Total, T4, Free, Additional followed-up results: 4 08/07/2025 9:45 AM EDT Office Visit [address] [address] Juliann Be MD Anxiety (Primary Dx) 08/07/2025 Travel 08/06/2025 2:40 PM EDT [facility] [address] [address] Berenice Erickson MD Hyperthyroidism (Primary Dx); Polydipsia 08/06/2025 Travel 08/06/[address] [address] Cassidy Rodarte MD ER Follow-up 08/06/2025 Patient Outreach [address] [place] [address] Cassidy Rodarte MD 08/06/2025 Patient Outreach [address] [address] Cassidy Rodarte MD Care Coordination ([facility] Khloe Snyder, Chart review ) 08/06/2025 Patient Outreach [facility] [address] [place] [address] Cassidy Rodarte MD Care Coordination ([facility]- chart review) 08/06/2025 Patient Outreach [facility] [address] [place] [address] Cassidy Rodarte MD 08/03/2025 Orders Only [facility] External Provider, [facility] from Last 3 Months Immunizations Immunization Administration [...] Answer Date Recorded Patient Health Questionnaire-9 Score 7 08/27/2025 Patient Health Questionnaire-9 Score 7 08/27/2025 Last PHQ-9: Questionnaire Data Not on file 1 Housing Stability Answer Date Recorded What is [...] didn't have enough money to get more: Sometimes True 09/28/2025 Transportation Answer Date Recorded In the past 12 months, has l ack of transportation kept you from medical appts, meetings, work or from getting things needed for daily living? No 03/26/2025 Intimate Partner Violence Answer Date R ecorded Within the last year, have y ou been afraid of your partner or ex-partner? 2 08/28/2025 Within the last year, have y ou been humiliated or emotionally abused in other ways by your partner or ex-partner? 2 Within the last year, have y ou been kicked, hit, slapped, or otherwise physically hurt by your partner or ex-partner? 2 08/28/2025 Within the last year, have y ou been raped or forced to have any kind of sexual activity by your partner or ex-partner? 2 08/28/2025 Utilities Answer Date Recorded In the past 12 months, has t he electric, gas, oil or water company threatened to shut off services in your home? No 03/26/2025 Depression Answer Date Recorded Patient Health Questionnaire-2 Score 3 08/27/2025 Internet Access Answer Date Recorded Internet Access [...] Sign Reading Time Taken Comments Blood Pressure 130/84 08/10/2025 2:15 PM EDT Pulse 82 08/10/2025 1:32 PM EDT Temperature 36.7 C (98.1 F) 08/10/2025 1:32 PM EDT Respiratory Rate 18 08/10/2025 1:32 PM EDT Oxygen Saturation 98% 08/10/2025 1:32 PM EDT Inhaled Oxygen Concentration - - Weight 102 kg (225 lb 6.4 oz) 08/10/2025 1:32 PM EDT Height 177.8 cm (5' 10 ) 03/26/2025 1:52 PM EDT Body Mass Index 32.34 03/26/2025 1:52 PM EDT Plan of Treatment Upcoming Encounters Date Type Department Care Team (Late st Contact Info) Description 10/17/2025 4:00 PM EST Office Visit [facility] [address] [place] [address] Cassidy Rodarte MD [address] [place] [address] Health Maintenance Due Date Last Done Comments Chlamydia and Gonorrhea Screening 2001 HIV Screening 2001 Lipid Panel 2001 Family Planning (PISQ) 2016 Meningococcal B Vaccine (1 of 2 - Standard) 2017 Pneumococcal Vaccine: Pediatrics (0 to 5 Years) and At-Risk Patients (6 to 49) Years (1 of 2 - PCV) 2020 03/29/2003, 11/30/2002, 09/28/2002, Additional history exists COVID-19 Vaccine ( season) 2025 04/22/2021, 04/01/2021 Influenza Vaccine (#1) 2025 2, 08/04/2017, 08/11/2016, Additional history exists Alcohol/Substance Use Screening 03/26/2026 03/26/2025 Disability Screening 03/26/2026 03/26/2025 Tobacco Screening 08/06/2026 08/06/2025 Depression Screening 08/27/2026 08/27/2025, 08/27/20 25 SDOH Screening 09/28/2026 09/28/2025 DTaP/Tdap/Td Vaccines (8 - Td or Tdap) 12/29/2033 12/29/2023, 06/16/2013, 11/26/2005, Additional history exists Zoster Vaccines (1 of 2) 2051 RSV Patients and Patients Aged 60 years or older (1 - 1-dose 75+ series) 2076 Hepatitis B Vaccines Completed 09/28/2002, 06/14/2002, 01/11/2002 HIB Vaccines Completed 03/29/2003, 09/09, 06/08/2002, Additional history exists IPV Vaccines Completed 11/26/2005, 09/09, 06/08/2002, Additional [...] Procedure Name Priority Date/Time Associated Diagnosis Comments POCT INFLUENZA B (ID NOW RAPID MOLECULAR) Routine 08/10/2025 2:05 PM EDT Diarrhea, unspecified type POCT INFLUENZA A (ID NOW RAPID MOLECULAR) Routine 08/10/2025 2:05 PM EDT Diarrhea, unspecified type POCT RAPID STREP A Routine 08/10/2025 2: 05 PM EDT Diarrhea, unspecified type POCT RAPID COVID ANTIGEN Routine 08/10/2025 2:05 PM EDT Diarrhea, unspecified type HEMOGLOBIN A1C Routine 08/07/2025 9:25 AM EDT Polydipsia Hyperthyroidism T4 (THYROXINE), TOTAL Routine 08/07/2025 9:25 AM EDT Hyperthyroidism TSH Routine 08/07/2025 9:25 AM EDT Polydipsia Hyperthyroidism T4, FREE Routine 08/07/2025 9:25 AM EDT Hyperthyroidism T3, TOTAL Routine 08/07/2025 9:25 AM EDT Hyperthyroidism T3, FREE Routine 08/07/2025 9:25 AM EDT Hyperthyroidism SED RATE BY MODIFIED WESTERGREN Routine 08/07/2025 6:25 AM EDT Hyperthyroidism MAGNESIUM Routine 08/03/2025 1:36 PM EDT T4, [...] VIEWS Routine 08/03/2025 12:5 5 PM EDT ZZZ HISTORICAL HEPATITIS C AB W/REFL TO HCV RNA, QN, PCR Routine 01/28/2022 8:08 AM EDT from Last 3 Months or Most Recently Relevant to Health Maintenance Results * Influenza B (ID NOW Rapid Molecular) (08/10/2025 2:05 PM EDT) [facility] Influenza B Negative Negative, Indeterminate [facility] Swab 08/10/2025 2:05 PM EDT us Vicki Unger MD POINT OF CARE TEST EN TER/EDIT ORDERABLES Final Result Performing Organization Address City/[facility]/ZIP Co de Phone Number [facility] [address] [place] [phone] * Influenza A (ID NOW Rapid Molecular) (08/10/2025 2:05 PM EDT) [facility] Influenza A Negative Negative, Indeterminate [facility] Swab 08/10/2025 2:05 PM EDT us Vicki Unger MD POINT OF CARE TEST EN TER/EDIT ORDERABLES Final Result Performing Organization Address City/[facility]/ZIP Co de Phone Number [facility] [address] [place] [phone] * POCT Rapid COVID Ag (08/10/2025 2:05 PM EDT) [facility] Rapid COVID Ag Negative [facility] Swab 08/10/2025 2:05 PM EDT Vicki Unger MD POINT OF CARE TEST EN TER/EDIT ORDERABLES Final Result Performing Organization Address [facility] Co de Phone Number [facility] [address] [place] [phone] * POCT rapid strep A manually resulted (08/10/2025 2:05 PM EDT) [facility] Rapid Strep A Screen Negative Negative, None Detected [facility] Swab 08/10/2025 2:05 PM EDT us Vicki Unger MD POINT OF CARE TEST EN TER/EDIT ORDERABLES Final Result Performing Organization Address [facility] de Phone Number [facility] [address] [place] [phone] * (ABNORMAL) T3, Free (08/07/2025 9:25 AM EDT) [facility] T3, Free 5.4(A) 2.3 - 4.2 pg/mL [facility] Comment:THIS TEST WAS PERFOR MED AT:[email or web address] [place] [phone] CRONIN MD Blood Venous blood specimen / Unknown 08/07/2025 9:25 AM EDT 08/07/2025 11:50 AM EDT us Berenice Erickson MD LAB BLOOD ORDERABLES Fin al Result Performing Organization Address [facility] Co de Phone Number [facility] [address] [place] [phone] * T3, Total (08/07/2025 9:25 AM EDT) Pathologist [facility] T3, Total 137 76 - 181 ng/dL [facility] Comment:THIS TEST WAS PERFOR MED AT:[email or web address] [place] [phone] CRONIN MD Blood Venous blood specimen / Unknown 08/07/2025 9:25 AM EDT 08/07/2025 11:50 AM EDT Berenice Erickson MD LAB BLOOD ORDERABLES Fin al Result Performing Organization Address [facility]/ZIP Co de Phone Number [facility] [address] [place] [phone] * (ABNORMAL) TSH (08/07/2025 9:25 AM EDT) Thyroid Stimulating Hormone 0.02(L) 0.32 - 4.0 uIU/mL [facility] Comment:TSH 3rd Generation ( [facility]) Blood Venous blood specimen / Unknown 08/07/2025 9:25 AM EDT 08/07/2025 11:50 AM EDT Berenice Erickson MD LAB BLOOD ORDERABLES Fin al Result Performing Organization Address [facility] de Phone Number [facility] [address] [place] [phone] * T4, Free (08/07/2025 9:25 AM EDT) Only the most recent of2 resultswithin the time period is included. Free T4 (Free Thyroxine) 1.31 0.71 - 1.85 ng/dL [facility] Blood Venous blood specimen / Unknown 08/07/2025 9:25 AM EDT 08/07/2025 11:50 AM EDT Berenice Erickson MD LAB BLOOD ORDERABLES Fin al Result Performing Organization Address [facility] Co de Phone Number [facility] [address] [place] [phone] * T4 (Thyroxine), Total (08/07/2025 9:25 AM EDT) T4 Thyroxine 9.5 4.5 - 12.0 ug/dL [facility] Blood Venous blood specimen / Unknown 08/07/2025 9:25 AM EDT 08/07/2025 11:50 AM EDT Berenice Erickson MD LAB BLOOD ORDERABLES Fin al Result Performing Organization Address [facility] Co de Phone Number [facility] [address] [place] [phone] * Hemoglobin A1c (08/07/2025 9:25 AM EDT) Hemoglobin A1c 5.2 <6.0 % [facility] Comment:Hemoglobin A1C Refer ence Range Adults: 4.8 - 6.0 % Non diabetic: < 6.0 % Goal: < 7.0 %Additional Action Suggested: > 8.0 %Note: Hemoglobin A1c results are invalid for patients with abnormal amounts of HbF. Blood transfusions may impact the HbA1c concentration in the patient sample. Estimated Average Glucose 103 mg/dL [facility] Comment:eAG = Estimated ave rage glucose which is %A1C expressed asaverage glucose, using the formula of the N9P-BtuyyfhOvwrygg Glucose study (ADAG), Diabetes Care, Vol.31,#8,2007 Blood Venous blood specimen / Unknown 08/07/2025 9:25 AM EDT 08/07/2025 11:50 AM EDT Berenice Erickson MD LAB BLOOD ORDERABLES Fin al Result Performing Organization Address [facility] Co de Phone Number [facility] [address] [place] [phone] * Sed Rate by Modified Juanaren (08/07/2025 6:25 AM EDT) Erythrocyte Sedimentation Rate 5 0 - 15 MM/HR [facility] Comment:Patients with polycy themia and many hemoglobin abnormalitiesmay have depressed sed rates whereas patients with anemiamay have elevated sed rates. Blood Venous blood specimen / Unknown 08/07/2025 6:25 AM EDT 08/07/2025 11:50 AM EDT Berenice Erickson MD LAB BLOOD ORDERABLES Fin al Result Performing Organization Address [facility] Co de Phone Number [facility] [address] [place] [phone] * Influenza A B2 ID NOW ([facility]) (08/03/2025 1:36 PM EDT) IDNOW SERIAL# [id number] [facility] Influenza A Negative Negative [facility] Influenza B2 Negative Negative [facility] Influenza A B2 Note See Note [facility] Comment:The [facility] ID NOW In [...] GENERAL ORDERABLES Final Result Performing Organization Address [facility] Co de Phone Number [facility] [address] [place] [phone] * COVID-19 ID NOW ([facility]) (08/03/2025 1:36 PM EDT) [facility]NOW SERIAL# [id number] [facility] COVID-19 TEST Negative Negative [facility] COVID-19 NOTE See Note [facility] Comment: Results are for the identification of SARS-CoV2 RNA. TheSARS-CoV2 RNA is generally detectable in respiratory samplesduring the acute phase of infection. Positive results areindicative of the presence of SARS-CoV-2 RNA; clinicalcorrelation with patient history and other diagnosticinformation is necessary to determine patient infectionstatus. Positive results do not rule out bacterial infectionor co- infection with other viruses.Testing facilities within the [place] and [facility] are required to report all positive results [...] use by authorized laboratories.Testing performed on the [employer] ID NOW utilizing NAAT. 08/03/2025 1:36 PM EDT 08/03/2025 1:41 PM EDT Generic External Data Provider LAB MOLECULAR DORIE [employer] ORDERABLES Final Result Performing Organization Address City/[facility]/ZIP Co de Phone Number [facility] [address] [place] [phone] * (ABNORMAL) TSH with Reflex to Free T4 (08/03/2025 1:36 PM EDT) TSH reflex Free T4 0.09(L) 0.32 - 4.0 uIU/mL [facility] 08/03/2025 1:36 PM EDT 08/03/2025 1:41 PM EDT Generic External Data Provider LAB BLOOD ORDERAB LES Final Result Performing Organization Address [facility] Co de Phone Number [facility] [address] [place] [phone] * (ABNORMAL) CBC auto differential (08/03/2025 1:36 PM EDT) White Blood Count 11.2(H) 4.8 - 10.8 X10*3/uL [facility] Red Blood Count 5.63 4.60 - 5.80 X10*6/uL [facility] Hemoglobin 15.8 14.0 - 18.0 g/dl [facility] Hematocrit 45.4 42.0 - 52.0 % [facility] Mean Corpuscular Volume 80.6 80.0 - 98.0 fL [facility] Mean Corpuscular Hemoglobin 28.1 27.0 - 33.0 pg [facility] Mean Corpuscular HGB Conc 34.8 31.0 - 36.0 g/dl [facility] Red Cell Distribution Width 12.8 11.0 - 16.0 % [facility] Platelet Count 270 160 - 400 X10*3/uL [facility] Mean Platelet Volume 9.4 9.4 - 12.4 fL [facility] Neutrophils Percent Auto 81.0(H) 45 - 73 % [facility] Imm Gran Pct Auto 0.3 0.0 - 0.4 % [facility] Lymphocytes Percent Auto 12.7(L) 20 - 40 % [facility] Monocytes Percent Auto 5.4 2 - 11 % [facility] Eosinophils Percent Auto 0.4 0 - 4 % [facility] Basophils Percent Auto 0.2 0 - 2 % [facility] NRBC Pct Auto 0.0 0.0 - 0.2 /100WBC [facility] Neutrophils Absolute Auto 9.1(H) 2.0 - 8.3 x10*3/uL [facility] Imm Gran Abs Auto 0.03 0.00 - 0.03 X10*3/uL [facility] Lymphocytes Absolute Auto 1.4 1.2 - 4.9 X10*3/uL [facility] Monocytes Absolute Auto 0.6 0.1 - 1.2 X10*3/uL [facility] Eosinophils Absolute Auto 0.0 0.0 - 0.4 X10*3/uL [facility] Basophils Absolute Auto 0.0 0.0 - 0.2 X10*3/uL [facility] NRBC Abs Auto 0.000 0.0 - 0.012 X10*3/uL [facility] 08/03/2025 1:36 PM EDT 08/03/2025 1:41 PM EDT Generic External Data Provider LAB BLOOD ORDERAB LES Final Result Performing Organization Address [facility] de Phone Number [facility] [address] [place] [phone] * Magnesium (08/03/2025 1:36 PM EDT) Pathologist [facility] Magnesium 2.2 1.6 - 2.6 mg/dL [facility] 08/03/2025 1:36 PM EDT 08/03/2025 1:41 PM EDT Generic External Data Provider LAB BLOOD ORDERAB LES Final Result Performing Organization Address [facility] Number [facility] [address] [place] [phone] * Lipase (08/03/2025 1:36 PM EDT) Pathologist [facility] Lipase 16 8 - 78 U/L [facility] 08/03/2025 1:36 PM EDT 08/03/2025 1:41 PM EDT Generic External Data Provider LAB BLOOD ORDERAB LES Final Result Performing Organization Address [facility] Phone Number [facility] [address] [place] [phone] * (ABNORMAL) Comprehensive Metabolic Panel (08/03/2025 1:36 PM EDT) Pathologist [facility] Sodium 140 135 - 145 mmol/L [facility] Potassium 3.8 3.3 - 5.1 mmol/L [facility] Comment:Slight Hemolysis.Int erpret result with caution. Chloride 111(H) 96 - 108 mmol/L [facility] Carbon Dioxide 21(L) 22 - 29 mmol/L [facility] Anion Gap 12 12 - 20 [facility] Urea Nitrogen (BUN) 13 9 - 16 mg/dL [facility] Creatinine, Serum 0.99 0.5 - 1.4 mg/dL [facility] Creatinine Clr Calc Pharmacy 134.3 [facility] Comment:eGFR (calculated fro m the MDRD study equation) and eCrCl(calculated from the Cockcroft-Gault equation) are based ondifferent parameters and may not yield comparable results.If eCrCl result is absurd, please check patient'sheight/weight. Estimated Glomerular Filt Rate >60 [facility] Comment:Chronic Kidney Disea se: Estimated GFR < 60 mL/min/1.58e2Mecknm Kidney Disease: Estimated GFR < 15 mL/min/1.73m2 Glucose 96 60 - 115 mg/dL [facility] Calcium 10.2 8.4 - 10.2 mg/dL [facility] Bilirubin, Total 1.1(H) 0.0 - 1.0 mg/dL [facility] Aspartate Amino Transferase 25 5 - 37 U/L [facility] Comment:Slight Hemolysis.Int erpret result with caution. Alanine Aminotransferase 18 0 - 40 U/L [facility] Total Protein 8.2(H) 6.5 - 8.0 g/dL [facility] Albumin Level 5.2(H) 3.5 - 5.0 g/dL [facility] Alkaline Phosphatase 102 39 - 117 U/L [facility] 08/03/2025 1:36 PM EDT 08/03/2025 1:41 PM EDT us Generic External Data Provider LAB BLOOD ORDERAB LES Final Result [facility] [address] [place] [phone] * XR Chest 2 Views (08/03/2025 12:55 PM EDT) Anatomical Region Laterality Modality Chest Radiographic Amanda ging 08/03/2025 12:5 5 PM EDT Narrative 08/03/2025 1:07 PM EDT [address] [address] XRay Report Signed Patient: Yong Yu MR #: [id number] : 2000 Acct:[id number] Age/Sex: 24 / M ADM Date: 08/03/25 Loc: HO.ED Attending Dr: Ordering Physician: Jorje Blackwood Date of Service: 08/03/25 Procedure(s): XR chest 2V Accession Number(s): [id number] cc: Cassidy Rodarte; Jorje Blackwood Reason for [...] 08/03/25 1304 DD/ 1255 TD/TT: 08/03/25 1257 [place] Utility Worker: Procedure Note Donotuseinterpreter, Image - 08/03/[address] [address] XRay Report Signed Patient: Yong YuMR #: [id number] : 2000Acct:[id number] Age/Sex: 24 / MADM Date: 08/03/25 Loc: .ED Attending Dr: Ordering Physician: Jorje Blackwood Date of Service: 08/03/25 Procedure(s): XR chest 2V Accession Number(s): [id number] cc: Cassidy Rodarte; Jorje Blackwood Reason for [...] 08/03/25 1304 DD/ 1255 TD/TT: 08/03/25 125[address] [place] Utility Worker: [facility] External Provider IMG XR PROCEDURES Final Result * HEPATITIS C AB W/REFL TO HCV RNA, QN, PCR (01/28/2022 8:08 AM EDT) HEPATITIS C ANTIBODY NON-REACT ELVIS NON-REACT ELVIS [facility] INDEX 0.02 <1.00 [facility] Comment: HCV antibody was non-reactive. There is no laboratory evidence of HCV infection. In most cases, no further action is required. However, if recent HCV exposure is suspected, a test for HCV RNA (test code 53845) is suggested. For additional information please refer to http://education.Innobits/faq/OYU28v7 (This link is being provided for informational/ educational purposes only.) 01/28/2022 8:08 AM EDT Rossana Lucas [facility] HISTORICAL/NON ORDERABLE LABS Final Result [facility] [address] from Last 3 Months or Most Recently Relevant to Health Maintenance Insurance [facility] C3 * Guarantor: Yong Yu Account Type Relation to Patient Date of Phone Billing Address Personal/Family Self [place], [place] * Guarantor: Yong Yu Account Type Relation to Patient Date of Phone Billing Address Personal/Family Self [place], [place] Care Teams Sales Service Technician Relationship Specialty Start Date End Date Cassidy Rodarte MD [address] [place] [address] PCP - General Family Medicine 07/11/24 Nikos Hercules, RN [address] [place] [id number] Registered Nurse Family Medicine 08/06/25 Khloe Snyder 08/06/25
--- OUTSIDE RECORDS SUMMARY | 2025-10-11 10:29 | XMS_ITS | Encounter Summary ---
Author Organization [employer] Address [address] [place] [address] [address] [place] [address] Care Team Providers Care Judicial Clerk Name Role Phone Cassidy Rodarte MD Primary Care Provider [phone] Nikos Hercules RN Unavailable [phone] Khloe Snyder Unavailable Reason for Visit * Reason Comments Pre-visit Planning SDOH screening compl eted on 09/28/2025 Encounter Details Date Type Department Care Team (Late st Contact Info) Description 10/08/2025 Patient Outreach [facility] [address] [place], [place] [id number] Cassidy Rodarte MD [address], [place] [phone] Pre-visit Planning (SDOH screening completed on 09/28/2025) Social History Tobacco Use Types Packs/Day Years [...] the past 12 months, has t he [employer], gas, oil or water [employer] threatened to shut off services in your [...] as of this encounter Progress Notes * Eleonora Rodriguez - 10/08/2025 9:56 AM EST [employer] placed successful outbound call to patient for pre-visit planning. Patient name and confirmed. Patient confirms appt date and time, and has transportation. Biggest concern for appointment at this time is none Patient advised to bring to appointment a photo id and insurance card. Appropriate screenings completed in anticipation of appointment. documented in this encounter Plan of Treatment Upcoming Encounters Date Type Department Care Team (Late st Contact Info) Description 10/17/2025 4:00 PM EST Office Visit [facility] [address] [place] [address] Cassidy Rodarte MD [address] [place] [address] documented as of this encounter Visit Diagnoses Not on filedocumented in this encounter Additional Health Concerns Assessment Noted Time PHQ-9 Depression Total Score: 7 08/27/20 25 10:23 AM EDT documented as of this encounter Care Teams Judicial Clerk Relationship Specialty Start Date End Date Cassidy Rodarte MD [address] [place] [address] PCP - General Family Medicine 07/11/24 Nikos Hercules, RN [address] [place] [phone] Registered Nurse Family Medicine 08/06/25 Khloe Snyder 08/06/25 documented as of this encounter
== END 2025-10-11 09:22 | disposition home or self-care (01) ==
LOC: HO.US 09:21
PROVIDERS: PCP General Practice; Visit Provider Student in an Organized Health Care Education/Training Program
DX: E05.90 Thyrotoxicosis, unspecified without thyrotoxic crisis or storm (principal)
CPT/HCPCS: 76536

== ENCOUNTER → 2025-10-11 09:23 | Outpatient (BNV) | payer MEDICAID, SELFPAY | PROVIDERS: PCP General Practice; Visit Provider Radiology Body Imaging | DX: E05.90 Thyrotoxicosis, unspecified without thyrotoxic crisis or storm (principal) | CPT/HCPCS: 76536 ==